=== PATIENT | female | born 1990 | race Caucasian/White ===

== ENCOUNTER 2018-02-04 09:03 | Inpatient (IN) ==
[2018-02-04] MEDS ORDERED: Albuterol 2.5 MG/3 ML NEBULIZER IH ONE (09:30)
[2018-02-04] MEDS ORDERED: Ipratropium/Albuterol Neb 3 ML IH ONE (09:30)
--- NOTE | 2018-02-04 09:33 | Emergency Department Note ---
Disposition Clinical Impression: Shortness of breath Asthma with exacerbation Qualifiers: Asthma severity: moderate Asthma persistence: persistent Qualified Code(s): J45.41 - Moderate persistent asthma with (acute) exacerbation Asthma exacerbation Qualifiers: Asthma severity: moderate Asthma persistence: persistent Qualified Code(s): J45.41 - Moderate persistent asthma with (acute) exacerbation Pneumonia Qualifiers: Pneumonia type: due to unspecified organism Laterality: bilateral Lung location : unspecified part of lung Qualified Code(s): J18.9 - Pneumonia, unspecified organism Disposition: Admitted As Inpatient Condition: Good Instructions: How to Stop Smoking (ED), Dyspnea (ED) Reasons to Return/Additional Instructions: Please return immediately for any new or worsening symptoms, especially pain associated with exertion or shortness of breath. Otherwise, refrain from strenuous activity until cleared by your doctor. Prescriptions: GuaiFENesin ER [Mucinex] 600 mg PO BID #10 tbbp.12hr predniSONE [Prednisone] 50 mg PO DAILY #5 tablet Referrals: Dilia Singh [Primary Care Provider] - Forms: ED Satisfaction Letter Time of Disposition: 11:20 SOB HPI - General Chief Complaint: ED Shortness of Breath/Dyspnea Stated Complaint: cough,sob Time Seen by Provider: 02/04/18 09:24 Source: patient Limitations: no limitations Nursing Notes Reviewed: Yes Vital Signs Reviewed: Yes - History of Present Illness 27-year-old female complains of shortness of breath cough congestion 1 week. Patient has a history of asthma. Patient states she is having productive cough green chunky expectorated. Patient states she has no chest pain but her shortness of breath is worsening. Patient was seen by her PCP Dr. Singh and was placed on amoxicillin, and prednisone 20 mg daily. Patient states her symptoms persist on medications. Patient denies fever, chills Patient admits to every day tobacco use one pack a day - Related Data Home Medications Medication Instructions Recorded Confirmed Albuterol Sulfate [Ventolin Hfa] 2 puff IH Q4H PRN 02/04/18 02/04/18 Alprazolam [Xanax] 2 mg PO BID 02/04/18 02/04/18 Clindamycin Phosphate [Cleocin T] 1 appl TP BID PRN 02/04/18 02/04/18 Gabapentin [Neurontin] 600 mg PO TID 02/04/18 02/04/18 Omeprazole [PriLOSEC] 20 mg PO BID 02/04/18 02/04/18 Paliperidone [Paliperidone ER] 3 mg PO DAILY 02/04/18 02/04/18 Paliperidone [Paliperidone ER] 9 mg PO HS 02/04/18 02/04/18 Venlafaxine HCl [Venlafaxine HCl 75 mg PO DAILY 02/04/18 02/04/18 ER] Zolpidem Tartrate [Zolpidem 5 mg PO HS PRN 02/04/18 02/04/18 Tartrate] Previous Rx's Medication Instructions Recorded GuaiFENesin ER [Mucinex] 600 mg PO BID #10 tbbp.12hr 02/04/18 predniSONE [Prednisone] 50 mg PO DAILY #5 tablet 02/04/18 Allergies Allergy/AdvReac Type Severity Reaction Status Date / Time doxycycline AdvReac Hives Verified 10/20/17 16:12 All systems ED: reviewed and negative except as stated. Review of Systems: As Per HPI Constitutional: Denies: fever, chills Cardiovascular: Denies: chest pain Respiratory: Reports: cough, dyspnea, wheezes. Denies: hemoptysis Gastrointestinal: Denies: abdominal pain, nausea, vomiting, diarrhea Musculoskeletal: Denies: back pain Past Medical History - Past Medical History Attestation: Yes The following information was validated with the patient. Source: patient, nursing notes reviewed Medical history: Reports: asthma Surgical history: Reports: cholecystectomy Psychiatric history: Reports: anxiety, depression, PTSD - Social History Smoking Status: Current every day smoker Smokeless Tobacco Status: No Alcohol use: Reports: none Drug use: Reports: none Physical Exam Vital Signs Temperature 98.6 F 02/04/18 09:11 Pulse Rate 98 02/04/18 09:11 Respiratory Rate 18 02/04/18 09:11 Blood Pressure 133/83 02/04/18 09:11 O2 Sat by Pulse Oximetry 92 02/04/18 09:11 Temperature 98.6 F 02/04/18 09:11 Pulse Rate 98 02/04/18 09:11 Respiratory Rate 18 02/04/18 09:11 Blood Pressure 133/83 02/04/18 09:11 O2 Sat by Pulse Oximetry 92 02/04/18 09:11 Oxygen Delivery Oxygen Delivery Room Air CONSTITUTIONAL: Alert and oriented X3, well-nourished, well appearing, in no apparent distress HEAD: Normocephalic; atraumatic. EYES: PERRL, no scleral icterus. NOSE: The nose is normal in appearance without rhinorrhea RESP: Normal chest excursion with respiration; wheezing auscultated bilaterally lung anguiano shallow breath sounds CARD: Regular rhythm, without murmurs, rub or gallop ABD: Non-distended; non-tender, soft,without rigidity, rebound or guarding SKIN: Normal for age and race; warm and dry; no apparent lesions - General Limitations: no limitations General appearance: alert Course - Reevaluation(s) Reevaluation #1: Patient has started her DuoNeb treatment. There was delay in receiving the medication from the pharmacy. Time: 10:20 Reevaluation #2: Patient failed her ambulation test. O2 saturations drop to 90% on room air. Patient is not on O2 at home Time: 11:12 Vital Signs Temperature 98.6 F 02/04/18 09:11 Pulse Rate 98 02/04/18 09:11 Respiratory Rate 18 02/04/18 09:11 Blood Pressure 133/83 02/04/18 09:11 O2 Sat by Pulse Oximetry 92 02/04/18 09:11 Temperature 98.6 F 02/04/18 09:11 Pulse Rate 98 02/04/18 10:08 Respiratory Rate 20 02/04/18 10:08 Blood Pressure 133/89 02/04/18 10:08 O2 Sat by Pulse Oximetry 95 02/04/18 10:08 Oxygen Delivery Oxygen Delivery Room Air Shortness of Breath/Dyspnea - [facility] Narrative Medical decision making narrative: Patient presents with cough and congestion times one week for asthma exacerbation with failure of outpatient treatment. Patient was placed on antibiotics aygmentin and prednisone 20 mg daily with no improvement in her symptoms. On the well's criteria for pulmonary embolism patient is low risk with no clinical signs and symptoms of DVT. Heart rate less than 100, no immobilization or recent surgeries and previous weeks, previously diagnosed PE or DVT, hemoptysis, treatment for malignancy. Plan is for patient to be treated with DuoNeb 3, albuterol nebulizer 3 and 60 mg by mouth prednisone. Chest x-ray ordered to assess for possible pneumonia. Patient's O2 saturations currently 91 on room air. Patient placed on supplemental oxygen 2 L via nasal cannula. Chest x-ray results per radiologist: Mild bilateral central perihilar prominence is nonspecific. This may be secondary to vascular crowding versus an atypical pneumonia. Recommend clinical correlation Patient was reexamined after treatment with DuoNeb and albuterol. There is deeper penetration and lower lung anguiano but patient still has some wheezing. After ambulating patient had a drop in her O2 sat down to 90% after short walk. Patient states she has has no change in her symptoms. Patient accepts this decision for admission for IV antibiotic therapy for pneumonia and hypoxia with failure to return to normal baseline. Patient is not on oxygen at home. Dr. Coy the hospitalist accepted patient for admission. - Lab Data Lab results reviewed: Yes I reviewed the patient's lab results. - Radiology Data Radiology results reviewed: Yes I reviewed the patient's radiology results. Chest X-Ray 02/04/18 09:31 IMPRESSION: Mild bilateral central perihilar prominence is nonspecific. This may be secondary to vascular crowding versus an atypical pneumonia. Recommend clinical correlation. D/ / Robson Santos MD / Robson Santos MD Interpreting Provider: Robson Santos MD - EKG Data EKG attestation: Yes I reviewed and interpreted this EKG. EKG results narrative: EKG taken 02/04/2018 at 1101 hrs. shows a sinus rhythm at a rate of 90 beats minute with no acute ST elevations or depressions a days, widened QT prolongation. There is no S1Q3T3, no Brugada, no Wellens. No changes when compared to previous EKG taken 09/10/2015.
[2018-02-04] MEDS ORDERED: predniSONE 20 MG TABLET PO ONE (09:45)
--- NOTE | 2018-02-04 09:49 | Emergency Department Note ---
Disposition Clinical Impression: Asthma with exacerbation Qualifiers: Asthma severity: moderate Asthma persistence: persistent Qualified Code(s): J45.41 - Moderate persistent asthma with (acute) exacerbation Disposition: Still a Patient Forms: ED Satisfaction Letter Time of Disposition: 09:48 General Adult HPI - General Chief complaint: ED Shortness of Breath/Dyspnea Stated complaint: cough,sob Time Seen by Provider: 02/04/18 09:24 Source: patient Limitations: no limitations Nursing Notes Reviewed: Yes Vital Signs Reviewed: Yes - History of Present Illness Pain Scale: 5 - Related Data Home Medications Medication Instructions Recorded Confirmed Adalimumab [Humira Psoriasis] 40 mg SQ QWEEK 07/11/15 07/11/15 Lurasidone [Latuda] 60 mg PO DAILY 07/11/15 07/11/15 Trazodone HCl [Oleptro ER] 150 mg PO DAILY 07/11/15 07/11/15 diazePAM [Valium] 5 mg PO BID 07/11/15 07/11/15 Previous Rx's Medication Instructions Recorded Ibuprofen [Motrin] 800 mg PO Q8HR #30 tablet 07/12/15 Hydrocodone/Acetaminophen [Vicodin 1 each PO Q6H PRN #12 tab 12/02/15 Es 7.5-300 mg Tablet] Ondansetron [Zofran ODT] 8 mg SL ONCE #15 tab.rapdis 11/04/16 Cyclobenzaprine [Flexeril] 10 mg PO HS PRN #10 tablet 10/20/17 Amoxicillin 875 mg PO BID #20 tablet 02/01/18 Fluconazole [Diflucan] 150 mg PO DAILY #1 tab 02/01/18 Promethazine/Codeine 5 - 10 ml PO Q8HR PRN 6 Days #120 02/01/18 [Phenergan/Codeine] ml predniSONE [PredniSONE] 0 mg PO DAILY #15 tablet 02/01/18 Allergies Allergy/AdvReac Type Severity Reaction Status Date / Time doxycycline AdvReac Hives Verified 10/20/17 16:12 Past Medical History - Past Medical History Medical history: Reports: asthma Surgical history: Reports: cholecystectomy Psychiatric history: Reports: anxiety, depression, PTSD - Social History Smoking Status: Current every day smoker Smokeless Tobacco Status: No Alcohol use: Reports: none Drug use: Reports: none Physical Exam - General Limitations: no limitations General appearance: alert Course - Reevaluation(s) Reevaluation #1: Attestation note I did independently examine and verified the physical examination findings evaluation workup and disposition of this patient. We had independent face-to- face examination and discussion. The patient was seen with the emergency medicine resident Dr. Edgar Alatorre I examined this patient and my medical decision-making was reviewed with the Resident Physician/ELECTRICAL WIRER/PA. I agree with the documented findings, disposition and treatment plan as described except to the extent set forth below. Briefly: 27-year-old female ambulatory nonsmoker presents with URI-type symptoms. History of asthma although no ICU intubation to recent steroids. Increasing cough with sputum and shortness of breath despite using her nebulizer her inhalers home. Patient has bilateral expiratory wheezing coughing afebrile with stable vital signs. Patient with a triple DuoNeb's by mouth steroids and chest x-ray PA and lateral. Disposition pending. Time: 09:47 Vital Signs Temperature 98.6 F 02/04/18 09:11 Pulse Rate 98 02/04/18 09:11 Respiratory Rate 18 02/04/18 09:11 Blood Pressure 133/83 02/04/18 09:11 O2 Sat by Pulse Oximetry 92 02/04/18 09:11 Temperature 98.6 F 02/04/18 09:11 Pulse Rate 98 02/04/18 09:11 Respiratory Rate 18 02/04/18 09:11 Blood Pressure 133/83 02/04/18 09:11 O2 Sat by Pulse Oximetry 92 02/04/18 09:11 Oxygen Delivery Oxygen Delivery Room Air
[2018-02-04] MEDS ORDERED: 0.9 % Sodium Chloride 1,000 ML IVC ONE (10:51)
[2018-02-04] MEDS ORDERED: Azithromycin 500 MG in D5% in Water 250 ML IVPB ONE (10:51)
[2018-02-04] MEDS ORDERED: cefTRIAXone 1,000 MG in Water for inj. (sterile) 20 ML 10 ML IVP ONE (10:57)
[2018-02-04 11:23] LABS: Basophils # 0.1 K/mcL (0.0-0.2); Basophils % 0.4 %; Eosinophils # 0.1 K/mcL (0.0-0.6); Eosinophils % 0.5 %; Hematocrit 41.4 % (35.3-44.9); Immature Granulocytes % 0.7 % (0-4); Lymphocytes % 26.4 %; Mean Corpuscular HGB Conc 33.8 g/dL (31.6-35.5); Mean Corpuscular Hemoglobin 28.3 pg (28.0-33.3); Mean Corpuscular Volume 83.8 fL (83.0-100.0); Mean Platelet Volume 9.3 fL (9.4-12.4); Monocytes # 0.8 K/mcL (0.0-1.3); Monocytes % 5.4 %; Neutrophils # 10.1 K/mcL (1.6-8.9); Platelet Count 297 K/mcL (140-400); Red Blood Count 4.94 M/mcL (3.82-4.97); Red Cell Distribution Width 14.8 % (11.5-14.5); Segmented Neutrophils % 66.6 %
--- NOTE | 2018-02-04 11:34 | Internal Med History&Physical ---
Date of Encounter: 02/04/18 Time of Encounter: 11:30 Assessment and Plan (1) Asthma exacerbation Current visit: Yes Status: Acute We will give IV steroids IV antibiotics scheduled nebulizer Qualifiers: Asthma severity: moderate Asthma persistence: persistent Qualified Code(s ): J45.41 - Moderate persistent asthma with (acute) exacerbation (2) Pneumonia Current visit: Yes Status: Acute Patient has no history of recent admission, we will Continue azithromycin and ceftriaxone Qualifiers: Pneumonia type: due to unspecified organism Laterality: bilateral Lung location: unspecified part of lung Qualified Code(s): J18.9 - Pneumonia, unspecified organism (3) Tobacco dependence Current visit: Yes Status: Acute Smoking cessation discussed will place nicotine patch (4) Morbid obesity with BMI of 45.0-49.9, adult Current visit: Yes Status: Chronic Internal Medicine - H&P: HPI Chief complaint: SOB Admitted From: Home Plans for Post Hospital Care: Home History of present illness: Ms. Mendez is a 27 year old female who has history of smoking and asthma presented to emergency room for shortness of breath and coughing a week. Patient has his history of asthma and uses rescue nebulizer 3-4 times a week and She also smokes a pack a day. She developed shortness of breath wheezing and a cough a week ago. Cough become productive over last few days, and shortness of breath got worse. ,she also c/o chest pain from deep breath and coweugh, pain is located LL chest , sharp when taking ddeep breath. She denies fever and chills, no hemoptysis. In ER, chest x-ray shows bilateral pneumonia and she also has diffuse wheezing patient is going to be admitted for pneumonia and asthma excaerbation Past Med Surg Social Fam HX - Past Medical History Medical history: asthma Psychiatric history: anxiety, depression, PTSD - Past Surgical History Surgical History: cholecystectomy - Social History Smoking Status: Current every day smoker Smokeless Tobacco Status: No Alcohol use: none Drug use: none Internal Medicine - H&P: Meds Albuterol Sulfate [Ventolin Hfa] 2 puff IH Q4H PRN 02/04/18 [History] Alprazolam [Xanax] 2 mg PO BID 02/04/18 [History] Clindamycin Phosphate [Cleocin T] 1 appl TP BID PRN 02/04/18 [History] Gabapentin [Neurontin] 600 mg PO TID 02/04/18 [History] GuaiFENesin ER [Mucinex] 600 mg PO BID #10 tbbp.12hr 02/04/18 [Rx] Omeprazole [PriLOSEC] 20 mg PO BID 02/04/18 [History] Paliperidone [Paliperidone ER] 3 mg PO DAILY 02/04/18 [History] Paliperidone [Paliperidone ER] 9 mg PO HS 02/04/18 [History] Venlafaxine HCl [Venlafaxine HCl ER] 75 mg PO DAILY 02/04/18 [History] Zolpidem Tartrate [Zolpidem Tartrate] 5 mg PO HS PRN 02/04/18 [History] predniSONE [Prednisone] 50 mg PO DAILY #5 tablet 02/04/18 [Rx] 3 Allergy/AdvReac Type Severity Reaction Status Date / Time doxycycline AdvReac Hives Verified 10/20/17 16:12 All Systems PM: A 10-system review of systems was performed and is negative for pertinent findings except as documented above in the HPI. - Constitutional Vitals: Temp Pulse Resp BP Pulse Ox 98.6 F 98 20 133/89 95 02/04/18 09:11 02/04/18 10:08 02/04/18 10:08 02/04/18 10:08 02/04/18 10:08 General appearance: Present: mild distress, A&O X 3, morbidly obese, pleasant Exam: CONSTITUTIONAL: Patient appears as an age appropriate female well developed, in no acute distress. EYES Clear sclerae, bilateral pupils are equal, reactive to light and accommodation. Extraocular movements are intact RESPIRATORY: No accessory muscle use, bilateral diffuse wheezing, no crackles/ rales. CARDIOVASCULAR: Regular heart rate, normal S1 and S2, no murmurs GASTROINTESTINAL: bowel sounds present, soft, no tenderness. No hepatosplenomegaly. No bilateral CVA tenderness MUSCULOSKELETAL: Joints in normal range of motion, no clubbing, no edema, no cyanosis. Bilateral peripheral pulses 2+ LYMPHATIC no lymphadenopathy in neck, groin and axilla bilaterally, no thyromegaly. NEUROLOGIC: CN II to XII are grossly intact, no focal neurological deficit. Deep tendon reflexes 2+ bilaterally. Normal light touch sensation to upper and lower extremity PSYCHIATRIC: Oriented x3, with good insight, mood is euthymic. No hallucinations or delusions. SKIN: Skin warm and dry, no rashes, no open wound. Internal Med - H&P Results - Labs CBC & Chem 7: 02/04/18 11:07 02/04/18 11:07 - Impressions ITS Impressions Chest X-Ray 02/04/18 09:31 IMPRESSION: Mild bilateral central perihilar prominence is nonspecific. This may be secondary to vascular crowding versus an atypical pneumonia. Recommend clinical correlation. D/ / Robson Santos MD / Robson Santos MD Interpreting Provider: Robson Santos MD
[2018-02-04] MEDS ORDERED: Ibuprofen 800 MG TABLET PO ONE (11:36)
[2018-02-04] MEDS ORDERED: CLINDAMYCIN PHOSPHATE APPL TP PRN (11:39)
[2018-02-04 11:41] LABS: BUN/Creatinine Ratio 18 (6-26); Blood Urea Nitrogen 12 mg/dL (6-20); Carbon Dioxide 26 mEq/L (23-29); Chloride 103 mEq/L (98-107); Glucose 105 mg/dL (70-105); Osmolality,Calculated 284 (280-300); Potassium 3.5 mEq/L (3.5-5.1); Sodium 137 mEq/L (136-145); eGFR For African Americans > 60 (> 60); eGFR For Non-African Americans > 60 (> 60)
[2018-02-04] MEDS ORDERED: Naloxone 0.4 MG/ML INJ IVP PRN (11:41)
[2018-02-04] MEDS: *HR* Heparin 5,000 UNIT/ML VIAL SQ SCH ×2 (14:33→21:38)
[2018-02-04] MEDS: methylPREDNISolone 125 MG/2 ML VIAL IVP SCH ×2 (14:33→17:37)
[2018-02-04] MEDS: Gabapentin 300 MG CAPSULE PO SCH ×2 (14:34→21:37)
[2018-02-04] MEDS: Ipratropium/Albuterol Neb 3 ML IH SCH ×3 (15:31→20:02)
[2018-02-04] MEDS: Nicotine 21 MG PATCH.TD24 TD SCH (17:37)
[2018-02-04] MEDS: ALPRAZolam 1 MG TABLET PO SCH (21:37)
[2018-02-05] MEDS: Ipratropium/Albuterol Neb 3 ML IH SCH ×6 (00:08→20:29)
[2018-02-05] MEDS: methylPREDNISolone 125 MG/2 ML VIAL IVP SCH ×3 (01:00→16:45)
[2018-02-05 06:24] LABS: Hematocrit 40.2 % (35.3-44.9); Hemoglobin 13.1 g/dL (11.5-15.4); Mean Corpuscular HGB Conc 32.6 g/dL (31.6-35.5); Mean Corpuscular Hemoglobin 27.6 pg (28.0-33.3); Mean Corpuscular Volume 84.8 fL (83.0-100.0); Mean Platelet Volume 9.5 fL (9.4-12.4); Platelet Count 290 K/mcL (140-400); Red Blood Count 4.74 M/mcL (3.82-4.97); Red Cell Distribution Width 14.5 % (11.5-14.5)
[2018-02-05 06:47] LABS: BUN/Creatinine Ratio 20 (6-26); Blood Urea Nitrogen 13 mg/dL (6-20); Calcium 9.2 mg/dL (8.6-10.3); Carbon Dioxide 19 mEq/L (23-29); Chloride 107 mEq/L (98-107); Glucose 352 mg/dL (70-105); Osmolality,Calculated 298 (280-300); Potassium 4.1 mEq/L (3.5-5.1); Sodium 137 mEq/L (136-145); eGFR For African Americans > 60 (> 60); eGFR For Non-African Americans > 60 (> 60)
[2018-02-05] MEDS: *HR* Heparin 5,000 UNIT/ML VIAL SQ SCH ×3 (06:47→22:06)
[2018-02-05] MEDS: Gabapentin 300 MG CAPSULE PO SCH ×3 (09:38→22:06)
[2018-02-05] MEDS: Nicotine 21 MG PATCH.TD24 TD SCH (09:38)
[2018-02-05] MEDS: ALPRAZolam 1 MG TABLET PO SCH ×2 (09:38→22:05)
[2018-02-05] MEDS: Venlafaxine XR (24 HR) 75 MG CAP.ER.24H PO SCH (09:38)
[2018-02-05] MEDS: cefTRIAXone 1,000 MG in Water for inj. (sterile) 20 ML 10 ML IVP SCH (09:39)
--- NOTE | 2018-02-05 10:24 | Internal Med Progress Note ---
Date of Encounter: 02/05/18 Time of Encounter: 09:53 - Assessment and plan (1) Asthma exacerbation Current Visit: Yes Status: Acute Assessment and plan: Will continue systemic steroids (decreased to Methylprednisolone 60mg IV q8h) continue bronchodilator support IV abx O2 supplementation as needed Guaifenesin prn cough will closely monitor respiratory status Qualifiers: Asthma severity: moderate Asthma persistence: persistent Qualified Code(s ): J45.41 - Moderate persistent asthma with (acute) exacerbation (2) Pneumonia Current Visit: Yes Status: Acute Assessment and plan: continue IV abx f/u blood cultures Qualifiers: Pneumonia type: due to unspecified organism Laterality: bilateral Lung location: unspecified part of lung Qualified Code(s): J18.9 - Pneumonia, unspecified organism (3) Tobacco dependence Current Visit: Yes Status: Chronic Assessment and plan: smoking cessation counseling provided patient not ready to quit at this time nicotine supplementation provided (4) Morbid obesity with BMI of 45.0-49.9, adult Current Visit: Yes Status: Chronic - Subjective Interval history: Patient seen and examined at bedside. Resting in bed and reports of mild improvement in her respiratory status compared to previous day. Reports of severe respiratory distress with minimal exertion and persistent non productive cough. Denies any chest pain, fever, or chills - Constitutional Vitals: Temp Pulse Resp BP Pulse Ox 98.6 F 112 18 121/74 91 02/05/18 08:13 02/05/18 08:13 02/05/18 08:13 02/05/18 08:13 02/05/18 08:13 General appearance: Present: A&O X 3, morbidly obese, pleasant, no acute distress - Head Head exam: Present: atraumatic, normocephalic - Eye Eye exam: Present: conjuntiva pink, sclera anicteric - Respiratory Respiratory exam: Absent: respiratory distress (scattered wheezing and decreased breath sounds diffusely, decreased inspiratory effort diffusely ) - Cardiovascular Cardiovascular exam: Present: RRR, +S1, +S2. Absent: diastolic murmur, gallop, rubs, systolic murmur - GI/Abdominal GI/Abdominal exam: Present: normal bowel sounds, soft, no peritoneal signs. Absent: distended, tenderness - Extremities Exam Extremities exam: Present: warm, radial pulses palpable and symmetrical. Absent : calf tenderness, pedal edema - Neurological Exam Neurological exam: Present: alert, oriented X3 - Psychiatric Psychiatric exam: Present: normal affect, normal mood Internal Medicine: Result - Labs CBC & Chem 7: 02/05/18 06:07 02/05/18 06:07 Labs: Short CBC 02/05/18 Range/Units 06:07 WBC 20.6 H (4.3-11.1) K/mcL Hgb 13.1 (11.5-15.4) g/dL Hct 40.2 (35.3-44.9) % Plt Count 290 (140-400) K/mcL BMP 02/05/18 06:07 Sodium 137 Potassium 4.1 Chloride 107 Carbon Dioxide 19 L BUN 13 Creatinine 0.66 Glucose 352 H Calcium 9.2 Consult Discharge Plan - Plan Referrals: Dilia Singh [Primary Care Provider] -
[2018-02-05] MEDS: Azithromycin 500 MG in D5% in Water 250 ML IVPB SCH (11:29)
[2018-02-05] MEDS: GuaiFENesin Liq 200 MG/10 ML UDC PO PRN (16:57)
[2018-02-06] MEDS: Ipratropium/Albuterol Neb 3 ML IH SCH ×6 (00:38→20:11)
[2018-02-06] MEDS: methylPREDNISolone 125 MG/2 ML VIAL IVP SCH ×3 (01:01→13:39)
[2018-02-06 07:25] LABS: Basophils % 0.2 %; Hematocrit 37.9 % (35.3-44.9); Hemoglobin 12.6 g/dL (11.5-15.4); Immature Granulocytes % 1.8 % (0-4); Immature Platelets 2.4 % (1.1-6.1); Lymphocytes # 1.6 K/mcL (0.6-4.6); Lymphocytes % 6.8 %; Mean Corpuscular HGB Conc 33.2 g/dL (31.6-35.5); Mean Corpuscular Hemoglobin 28.3 pg (28.0-33.3); Mean Corpuscular Volume 85.2 fL (83.0-100.0); Mean Platelet Volume 10.1 fL (9.4-12.4); Monocytes # 0.7 K/mcL (0.0-1.3); Neutrophils # 21.2 K/mcL (1.6-8.9); Platelet Count 321 K/mcL (140-400); Red Blood Count 4.45 M/mcL (3.82-4.97); Red Cell Distribution Width 14.8 % (11.5-14.5); Segmented Neutrophils % 88.2 %
[2018-02-06 07:39] LABS: Basophils # 0.1 K/mcL (0.0-0.2)
[2018-02-06 07:49] LABS: BUN/Creatinine Ratio 23 (6-26); Blood Urea Nitrogen 15 mg/dL (6-20); Calcium 9.2 mg/dL (8.6-10.3); Carbon Dioxide 22 mEq/L (23-29); Chloride 106 mEq/L (98-107); Glucose 411 mg/dL (70-105); Magnesium 2.2 mg/dL (1.6-2.6); Osmolality,Calculated 304 (280-300); Phosphorous 3.1 mg/dL (2.7-4.5); Sodium 138 mEq/L (136-145); eGFR For African Americans > 60 (> 60); eGFR For Non-African Americans > 60 (> 60)
[2018-02-06 08:02] LABS: Platelet Estimate Normal (Normal)
[2018-02-06] MEDS: Venlafaxine XR (24 HR) 75 MG CAP.ER.24H PO SCH (09:05)
[2018-02-06] MEDS: Gabapentin 300 MG CAPSULE PO SCH ×3 (09:05→21:51)
[2018-02-06] MEDS: ALPRAZolam 1 MG TABLET PO SCH ×2 (09:05→21:42)
[2018-02-06] MEDS: Nicotine 21 MG PATCH.TD24 TD SCH (09:05)
[2018-02-06] MEDS ORDERED: D5% in Water 1,000 ML IVC PRN (09:06)
[2018-02-06] MEDS ORDERED: *HR* Dextrose 50 % in Water (Syg) 50 ML SYRINGE IVP PRN (09:06)
[2018-02-06] MEDS ORDERED: Dextrose Gel 15 GM/37.5 ML TUBE PO PRN ×2 (09:06)
[2018-02-06] MEDS: cefTRIAXone 1,000 MG in Water for inj. (sterile) 20 ML 10 ML IVP SCH (09:06)
[2018-02-06] MEDS: *HR* Heparin 5,000 UNIT/ML VIAL SQ SCH ×3 (09:07→21:51)
--- NOTE | 2018-02-06 09:24 | Internal Med Progress Note ---
Date of Encounter: 02/06/18 Time of Encounter: 09:15 - Assessment and plan (1) Asthma exacerbation Current Visit: Yes Status: Acute Assessment and plan: Will continue systemic steroids (Methylprednisolone 60mg IV q8h) continue bronchodilator support IV abx O2 supplementation as needed Guaifenesin prn cough will closely monitor respiratory status will repeat CXR given persistence of symptoms Qualifiers: Asthma severity: moderate Asthma persistence: persistent Qualified Code(s ): J45.41 - Moderate persistent asthma with (acute) exacerbation (2) Pneumonia Current Visit: Yes Status: Acute Assessment and plan: continue IV abx Blood cultures prelim: NGTD Qualifiers: Pneumonia type: due to unspecified organism Laterality: bilateral Lung location: unspecified part of lung Qualified Code(s): J18.9 - Pneumonia, unspecified organism (3) Tobacco dependence Current Visit: Yes Status: Chronic Assessment and plan: smoking cessation counseling provided patient not ready to quit at this time nicotine supplementation provided (4) Morbid obesity with BMI of 45.0-49.9, adult Current Visit: Yes Status: Chronic (5) Hyperglycemia Current Visit: Yes Status: Acute Assessment and plan: Likely secondary to steroid use, however will obtain HbA1C will start sliding scale insulin algorithm TIDAC, HS while inpatient on steroids will closely monitor BG - Subjective Interval history: Pt seen and examined at bedside. Resting in bed and noted to be requiring O2 therapy. States she continues to be in severe respiratory distress even with minimal exertion. Noted to remain O2 dependent when at baseline she is not on any home oxygen therapy. Reports of improvement in her cough. - Constitutional Vitals: Temp Pulse Resp BP Pulse Ox 96.8 F L 88 16 133/82 96 02/06/18 08:16 02/06/18 08:16 02/06/18 08:16 02/06/18 08:16 02/06/18 08:16 General appearance: Present: A&O X 3, morbidly obese, pleasant, no acute distress - Head Head exam: Present: atraumatic, normocephalic - Eye Eye exam: Present: conjuntiva pink, sclera anicteric - Respiratory Respiratory exam: Absent: respiratory distress, wheezes (decreased breath sounds diffusely, equal air entry bilaterally ) - Cardiovascular Cardiovascular exam: Present: RRR, +S1, +S2. Absent: diastolic murmur, gallop, rubs, systolic murmur - GI/Abdominal GI/Abdominal exam: Present: normal bowel sounds, soft, no peritoneal signs. Absent: distended, tenderness - Extremities Exam Extremities exam: Present: warm, radial pulses palpable and symmetrical. Absent : calf tenderness, cyanotic, pedal edema - Neurological Exam Neurological exam: Present: oriented X3, no focal deficits. Absent: pronater drift, facial droop, speech deficit - Psychiatric Psychiatric exam: Present: normal affect, normal mood Internal Medicine: Result - Labs CBC & Chem 7: 02/06/18 06:17 02/06/18 06:17 Labs: Short CBC 02/06/18 Range/Units 06:17 WBC 24.0 H (4.3-11.1) K/mcL Hgb 12.6 (11.5-15.4) g/dL Hct 37.9 (35.3-44.9) % Plt Count 321 (140-400) K/mcL Neutrophils # 21.2 H (1.6-8.9) K/mcL BMP 02/06/18 06:17 Sodium 138 Potassium 4.0 Chloride 106 Carbon Dioxide 22 L BUN 15 Creatinine 0.65 Glucose 411 H Calcium 9.2 Consult Discharge Plan - Plan Referrals: Dilia Singh [Primary Care Provider] -
[2018-02-06 10:20] LABS: Estimated Average Glucose 123 mg/dl; Hemoglobin A1C 5.9 %
[2018-02-06] MEDS: Azithromycin 500 MG in D5% in Water 250 ML IVPB SCH (11:42)
--- NOTE | 2018-02-06 12:30 | Electrocardiograph Report ---
[place] [id number] Test Date: 2018-02-04 Pat Name: Jennifer Mendez Department: 104 Room: 3B Gender: F Hand Packager: KAY : 1990 Requested By: Edgar Alatorre Order Number: [id number] Reading MD: John Land Measurements Intervals [place] Rate: 90 P: 23 [place]: 169 QRS: 0 QRSD: 113 T: 15 QT: 357 QTc: 404 Interpretive Statements SINUS RHYTHM MODERATE VOLTAGE CRITERIA FOR LVH BASELINE ARTIFACT Electronically Signed On 02-06-2018 12:29:08 EDT by John Land
[2018-02-06] MEDS: GuaiFENesin Liq 200 MG/10 ML UDC PO PRN ×2 (13:39→21:42)
[2018-02-06] MEDS: Insulin LISPRO 300 UNITS/3 ML VIAL SQ SCH ×2 (13:40→18:00)
[2018-02-06] MEDS ORDERED: methylPREDNISolone 125 MG/2 ML VIAL IVP SCH (19:00)
[2018-02-06] MEDS ORDERED: Insulin LISPRO 300 UNITS/3 ML VIAL SQ SCH (21:00)
[2018-02-07] MEDS: Ipratropium/Albuterol Neb 3 ML IH SCH ×7 (00:08→23:56)
[2018-02-07] MEDS: methylPREDNISolone 125 MG/2 ML VIAL IVP SCH ×4 (00:52→22:45)
[2018-02-07] MEDS: *HR* Heparin 5,000 UNIT/ML VIAL SQ SCH ×3 (06:42→22:45)
[2018-02-07 06:49] LABS: BUN/Creatinine Ratio 30 (6-26); Blood Urea Nitrogen 17 mg/dL (6-20); Calcium 9.2 mg/dL (8.6-10.3); Carbon Dioxide 24 mEq/L (23-29); Chloride 103 mEq/L (98-107); Glucose 316 mg/dL (70-105); Magnesium 2.1 mg/dL (1.6-2.6); Osmolality,Calculated 296 (280-300); Potassium 4.1 mEq/L (3.5-5.1); Sodium 136 mEq/L (136-145); eGFR For African Americans > 60 (> 60); eGFR For Non-African Americans > 60 (> 60)
[2018-02-07 06:56] LABS: Basophils # 0.1 K/mcL (0.0-0.2); Basophils % 0.3 %; Hematocrit 37.8 % (35.3-44.9); Hemoglobin 12.3 g/dL (11.5-15.4); Immature Granulocytes % 3.6 % (0-4); Lymphocytes # 2.6 K/mcL (0.6-4.6); Lymphocytes % 11.4 %; Mean Corpuscular HGB Conc 32.5 g/dL (31.6-35.5); Mean Corpuscular Hemoglobin 27.8 pg (28.0-33.3); Mean Corpuscular Volume 85.5 fL (83.0-100.0); Mean Platelet Volume 9.8 fL (9.4-12.4); Monocytes % 4.1 %; Neutrophils # 18.6 K/mcL (1.6-8.9); Platelet Count 307 K/mcL (140-400); Red Blood Count 4.42 M/mcL (3.82-4.97); Red Cell Distribution Width 14.6 % (11.5-14.5); Segmented Neutrophils % 80.6 %
[2018-02-07] MEDS ORDERED: predniSONE 20 MG TABLET PO SCH (09:00)
[2018-02-07] MEDS: ALPRAZolam 1 MG TABLET PO SCH ×2 (09:24→20:26)
[2018-02-07] MEDS: Gabapentin 300 MG CAPSULE PO SCH ×3 (09:24→20:26)
[2018-02-07] MEDS: Venlafaxine XR (24 HR) 75 MG CAP.ER.24H PO SCH (09:24)
[2018-02-07] MEDS: Nicotine 21 MG PATCH.TD24 TD SCH (09:24)
[2018-02-07] MEDS: cefTRIAXone 1,000 MG in Water for inj. (sterile) 20 ML 10 ML IVP SCH (09:25)
[2018-02-07] MEDS: Insulin LISPRO 300 UNITS/3 ML VIAL SQ SCH ×3 (09:34→18:16)
[2018-02-07] MEDS ORDERED: Insulin LISPRO 300 UNITS/3 ML VIAL SQ SCH (09:39)
[2018-02-07] MEDS: GuaiFENesin Liq 200 MG/10 ML UDC PO PRN ×2 (09:54→23:08)
[2018-02-07] MEDS: Azithromycin 500 MG in D5% in Water 250 ML IVPB SCH (10:54)
--- NOTE | 2018-02-07 11:03 | Pulmonology Consult Note ---
Date of Encounter: 02/07/18 Time of Encounter: 11:02 Assessment and Plan (1) Asthma with exacerbation Current Visit: Yes Status: Acute This is likely secondary to infectious pneumonia 4/appears that patient's baseline asthma was not well controlled as she was having nightly nocturnal awakenings to cough Continue IV steroids with plan to transition to oral formulation over the next 24-48 hours will likely need two-week taper Start Symbicort 160/4.52 puffs twice a day this can be given to the patient at discharge she should be instructed to stop all other inhaled corticosteroid inhalers DuoNeb treatments as prescribed patient should have an nebulizer compressor to go home with she may be a candidate for long acting muscarinic antagonist such as Spiriva in Respimat forumlation Check IgE level Daily peak flow Follow-up pulmonary clinic in 2-4 weeks of the time of discharge Qualifiers: Asthma severity: unspecified severity Asthma persistence: persistent Qualified Code(s): J45.901 - Unspecified asthma with (acute) exacerbation (2) Pneumonia Current Visit: Yes Status: Acute This appears infectious and I suspect viral pneumonia Please obtain respiratory infectious panel Agree with continued treatment for community-acquired pneumonia to complete [address] scan in 4-6 weeks at the time of discharge to confirm resolution Qualifiers: Pneumonia type: due to unspecified organism Laterality: bilateral Lung location: unspecified part of lung Qualified Code(s): J18.9 - Pneumonia, unspecified organism (3) Morbid obesity with BMI of 45.0-49.9, adult Current Visit: Yes Status: Chronic Weight loss encouraged (4) Tobacco dependence Current Visit: Yes Status: Chronic Tobacco counseling cessation given to the patient please provide patient with nicotine replacement as needed now and at time of discharge (5) Sleep disorder breathing Current Visit: Yes Status: Acute High pretest probability this patient has obstructive sleep apnea Explained that possible adverse effects of untreated sleep apnea explained including increased risk of stroke, hypertension, headaches, and pulmonary hypertension. Advised not to drive if sleepy as untreated NIKO can cause motor vehicle accidents. She will need outpatient polysomnogram (6) Allergic rhinitis Current Visit: Yes Status: Acute Start intranasal corticosteroid Start Singulair Cont Zyrtec Qualifiers: Qualified Code(s): J30.9 - Allergic rhinitis, unspecified (7) Acute respiratory failure with hypoxia Current Visit: Yes Status: Acute Continue supplemental oxygen to keep saturation greater than 88% at all times Patient will need a walking pulse oximetry test prior to discharge History of Present Illness Consult date: 02/07/18 Requesting physician: Juani Vasquez Reason for consult: asthma Chief complaint: Difficulty in breathing History of present illness: This is a very pleasant 27-year-old with past medical history of asthma diagnosed challenge presented with she describes as upper respiratory tract infection likely she caught from her boyfriend who also had similar symptoms of significant cough or shortness of breath approximately 3 days prior to admission to the ED. She was seen in urgent care for this given steroids and a course of antibiotics which she ended up taking 3 days of Augmentin and prednisone however symptoms did not kady and she presented to the ED. She requires abdominal oxygen which is new for her since this admission and is currently on 23 L to keep saturation in the mid 90s. No other exacerbations requiring hospitalizations in the past. She has significant problems with allergic rhinitis and allergic triggers such as pets including dogs and cats. She smokes about 1 pack a day and has for many years. Current work environment is at a [employer] shop. She is morbidly obese complaining of loud snoring and frequent daytime hypersomnolence She denies nausea vomiting hemoptysis weight loss joint pains or rash Past Med Surg Social Fam HX - Past Medical History Medical history: asthma Psychiatric history: anxiety, depression, PTSD - Past Surgical History Surgical History: cholecystectomy - Social History Smoking Status: Current every day smoker Packs per day: 1 Smokeless Tobacco Status: No Alcohol use: none Drug use: none - Family History Mother Hx Family Respiratory Disorders: Yes (COPD) Medications and Allergies Albuterol Sulfate [Ventolin Hfa] 2 puff IH Q4H PRN 02/04/18 [History] Alprazolam [Xanax] 2 mg PO BID 02/04/18 [History] Clindamycin Phosphate [Cleocin T] 1 appl TP BID PRN 02/04/18 [History] Gabapentin [Neurontin] 600 mg PO TID 02/04/18 [History] GuaiFENesin ER [Mucinex] 600 mg PO BID #10 tbbp.12hr 02/04/18 [Rx] Omeprazole [PriLOSEC] 20 mg PO BID 02/04/18 [History] Paliperidone [Paliperidone ER] 3 mg PO DAILY 02/04/18 [History] Paliperidone [Paliperidone ER] 9 mg PO HS 02/04/18 [History] Venlafaxine HCl [Venlafaxine HCl ER] 75 mg PO DAILY 02/04/18 [History] Zolpidem Tartrate [Zolpidem Tartrate] 5 mg PO HS PRN 02/04/18 [History] predniSONE [Prednisone] 50 mg PO DAILY #5 tablet 02/04/18 [Rx] 3 Allergy/AdvReac Type Severity Reaction Status Date / Time doxycycline AdvReac Hives Verified 10/20/17 16:12 All Systems: The remainder of the systems were reviewed and are negative Physical Examination Vital Signs: Vital Signs, Last 4 Hours Temp Pulse Resp BP Pulse Ox 02/07/18 07:53 97.3 F L 87 16 149/88 94 02/07/18 07:46 16 94 General appearance: appears uncomfortable Eyes: nonicteric ENT: oropharynx moist Mallampati (class): 4 Neck: supple Effort: mildly labored Auscultation: bilateral: diminished breath sounds, wheezes (insp wheeze noted ) Cardiovascular: regular rate and rhythm Gastrointestinal: normoactive bowel sounds Integumentary: normal Extremities: no cyanosis, no edema, no clubbing Musculoskeletal: no deformities normal mental status, non-focal exam Results - Laboratory Findings CBC and BMP: 02/07/18 06:00 02/07/18 06:00 Abnormal lab findings: Abnormal lab results WBC 23.0 K/mcL (4.3-11.1) H 02/07/18 06:00 MCH 27.8 pg (28.0-33.3) L 02/07/18 06:00 RDW 14.6 % (11.5-14.5) H 02/07/18 06:00 Neutrophils # 18.6 K/mcL (1.6-8.9) H 02/07/18 06:00 Creatinine 0.56 mg/dL (0.60-1.20) L 02/07/18 06:00 BUN/Creatinine Ratio 30 (6-26) H 02/07/18 06:00 Glucose 316 mg/dL (70-105) H 02/07/18 06:00 POC Glucose 331 mg/dL (58-89) H 02/06/18 17:19 Hemoglobin A1c 5.9 % (-5.6) H 02/06/18 06:17 - Clinical Findings Intake & Output: Intake & Output 02/06/18 02/07/18 02/07/18 23:59 07:59 15:59 Intake Total 420 / 420 Balance 420 / 420 Weight 135.7 kg Consult Discharge Plan - Plan Referrals: Dilia Singh [Primary Care Provider] -
[2018-02-07] MEDS: Budesonide/Formoterol 160/4.5 MDI IH SCH ×2 (11:55→20:04)
[2018-02-07] MEDS ORDERED: 0.9 % Sodium Chloride 1,000 ML ONE (12:16)
[2018-02-07 13:04] LABS: Adenovirus Not Detected (Not Detect); Bordetella Pertussis Not Detected (Not Detect); Chlamydophila pneumoniae Not Detected (Not Detect); Coronavirus 229E Not Detected (Not Detect); Coronavirus HKU1 Not Detected (Not Detect); Coronavirus NL63 Not Detected (Not Detect); Coronavirus OC43 Not Detected (Not Detect); Human Metapneumovirus Not Detected (Not Detect); Human Rhinovirus/Enterovirus ***DETECTED*** (Not Detect); Influenza A Subtype 2009 H1 Not Detected (Not Detect); Influenza A Untypeable Not Detected (Not Detect); Influenza B Not Detected (Not Detect); Mycoplasma pneumoniae Not Detected (Not Detect); Parainfluenza Virus 1 Not Detected (Not Detect); Parainfluenza Virus 2 Not Detected (Not Detect); Parainfluenza Virus 3 Not Detected (Not Detect); Parainfluenza Virus 4 Not Detected (Not Detect); Respiratory Syncytial Virus Not Detected (Not Detect)
[2018-02-07] MEDS: Fluticasone Propionate Nasal 50 MCG/SPRAY BOTTLE NS SCH (13:24)
[2018-02-07] MEDS: 0.9 % Sodium Chloride 1,000 ML IVC SCH (13:25)
[2018-02-07 13:40] LABS: BUN/Creatinine Ratio 30 (6-26); Blood Urea Nitrogen 20 mg/dL (6-20); Calcium 9.3 mg/dL (8.6-10.3); Carbon Dioxide 25 mEq/L (23-29); Chloride 103 mEq/L (98-107); Glucose 403 mg/dL (70-105); Osmolality,Calculated 298 (280-300); Sodium 134 mEq/L (136-145); eGFR For African Americans > 60 (> 60); eGFR For Non-African Americans > 60 (> 60)
--- NOTE | 2018-02-07 17:03 | Internal Med Progress Note ---
Date of Encounter: 02/07/18 Time of Encounter: 14:15 - Assessment and plan (1) Asthma exacerbation Current Visit: Yes Status: Acute Assessment and plan: Pulmonary evaluation appreciated added Symbicort, Fluticasone, and Singulair pt will need O2 qualification testing prior to discharge continue systemic steroids (Methylprednisolone 60mg IV q8h) continue bronchodilator support IV abx O2 supplementation as needed Guaifenesin prn cough will closely monitor respiratory status CTA chest noted Qualifiers: Asthma severity: moderate Asthma persistence: persistent Qualified Code(s ): J45.41 - Moderate persistent asthma with (acute) exacerbation (2) Pneumonia Current Visit: Yes Status: Acute Assessment and plan: continue IV abx Blood cultures prelim: NGTD respiratory viral panel positive for entero/rsv Qualifiers: Pneumonia type: due to unspecified organism Laterality: bilateral Lung location: unspecified part of lung Qualified Code(s): J18.9 - Pneumonia, unspecified organism (3) Tobacco dependence Current Visit: Yes Status: Chronic Assessment and plan: smoking cessation counseling provided patient not ready to quit at this time nicotine supplementation provided (4) Morbid obesity with BMI of 45.0-49.9, adult Current Visit: Yes Status: Chronic (5) Hyperglycemia Current Visit: Yes Status: Acute Assessment and plan: HbA1C: 5.9 increased to high dose sliding scale insulin algorithm Levemir 10units SQ HS dietary compliance and education provided gentle IV fluids will closely monitor FS and BG ADA diet - Time Spent With Patient Total time spent is greater than 50% in coordination of care (as documented) at patient's floor/unit and/or counseling patient: - Subjective Interval history: Pt seen and examined with family present at bedside. Continues to remain O2 dependent due to which pulmonary evaluation was requested. Pt also noted to be hyperglycemic and noted to have sodas, chips, sweets around her room. Pt educated about dietary compliance. Insulin dosing adjusted. - Constitutional Vitals: Temp Pulse Resp BP Pulse Ox 97.9 F 77 18 126/75 95 02/07/18 15:41 02/07/18 15:41 02/07/18 15:41 02/07/18 15:41 02/07/18 15:41 General appearance: Present: A&O X 3, morbidly obese, no acute distress - Head Head exam: Present: atraumatic, normocephalic - Eye Eye exam: Present: conjuntiva pink, sclera anicteric - Respiratory Respiratory exam: Absent: respiratory distress (decreased breath sounds but equal air entry bilaterally, mild wheezing bilaterally ) - Cardiovascular Cardiovascular exam: Present: RRR, +S1, +S2. Absent: diastolic murmur, gallop, rubs, systolic murmur - GI/Abdominal GI/Abdominal exam: Present: normal bowel sounds, soft, no peritoneal signs. Absent: distended, tenderness - Extremities Exam Extremities exam: Present: warm, radial pulses palpable and symmetrical. Absent : calf tenderness, pedal edema - Neurological Exam Neurological exam: Present: oriented X3 Internal Medicine: Result - Labs CBC & Chem 7: 02/07/18 06:00 02/07/18 12:57 Labs: Short CBC 02/07/18 Range/Units 06:00 WBC 23.0 H (4.3-11.1) K/mcL Hgb 12.3 (11.5-15.4) g/dL Hct 37.8 (35.3-44.9) % Plt Count 307 (140-400) K/mcL Neutrophils # 18.6 H (1.6-8.9) K/mcL BMP 02/07/18 02/07/18 06:00 12:57 Sodium 136 134 L Potassium 4.1 4.0 Chloride 103 103 Carbon Dioxide 24 25 BUN 17 20 Creatinine 0.56 L 0.66 Glucose 316 H 403 H Calcium 9.2 9.3 - Impressions Impressions Chest CTA 02/07/18 09:38 IMPRESSION: 1. No evidence of pulmonary embolus. 2. Bilateral peribronchovascular ground-glass opacities suggestive of pneumonia. D/ / 02/07/2018 10:49:50 Jerome Leger MD / michelle Interpreting Provider: Jerome Leger MD Consult Discharge Plan - Plan Referrals: Dilia Singh [Primary Care Provider] -
[2018-02-07] MEDS ORDERED: Insulin DETEMIR 100 UNIT/ML X5UNITS SQ SCH (21:00)
[2018-02-07] MEDS ORDERED: Acetaminophen 325 MG TABLET PO PRN (22:50)
[2018-02-08] MEDS: 0.9 % Sodium Chloride 1,000 ML IVC SCH (01:54)
[2018-02-08] MEDS: Ipratropium/Albuterol Neb 3 ML IH SCH ×6 (04:34→23:26)
[2018-02-08] MEDS ORDERED: traMADol 50 MG TABLET PO ONE (04:40)
[2018-02-08 04:53] LABS: Basophils # 0.1 K/mcL (0.0-0.2); Basophils % 0.4 %; Hematocrit 36.6 % (35.3-44.9); Hemoglobin 12.1 g/dL (11.5-15.4); Immature Granulocytes % 4.6 % (0-4); Lymphocytes # 2.9 K/mcL (0.6-4.6); Lymphocytes % 13.5 %; Mean Corpuscular HGB Conc 33.1 g/dL (31.6-35.5); Mean Corpuscular Hemoglobin 27.9 pg (28.0-33.3); Mean Corpuscular Volume 84.3 fL (83.0-100.0); Mean Platelet Volume 9.5 fL (9.4-12.4); Monocytes # 0.9 K/mcL (0.0-1.3); Monocytes % 4.3 %; Neutrophils # 16.5 K/mcL (1.6-8.9); Platelet Count 289 K/mcL (140-400); Red Blood Count 4.34 M/mcL (3.82-4.97); Red Cell Distribution Width 14.4 % (11.5-14.5); Segmented Neutrophils % 77.2 %
[2018-02-08] MEDS: methylPREDNISolone 125 MG/2 ML VIAL IVP SCH ×3 (04:59→21:17)
[2018-02-08] MEDS: *HR* Heparin 5,000 UNIT/ML VIAL SQ SCH ×3 (04:59→21:17)
[2018-02-08] MEDS: Nicotine 21 MG PATCH.TD24 TD SCH (05:01)
[2018-02-08 05:17] LABS: BUN/Creatinine Ratio 37 (6-26); Blood Urea Nitrogen 20 mg/dL (6-20); Calcium 8.8 mg/dL (8.6-10.3); Carbon Dioxide 26 mEq/L (23-29); Chloride 103 mEq/L (98-107); Glucose 229 mg/dL (70-105); Magnesium 2.3 mg/dL (1.6-2.6); Osmolality,Calculated 292 (280-300); Potassium 4.1 mEq/L (3.5-5.1); Sodium 136 mEq/L (136-145); eGFR For African Americans > 60 (> 60); eGFR For Non-African Americans > 60 (> 60)
[2018-02-08] MEDS: Budesonide/Formoterol 160/4.5 MDI IH SCH ×2 (07:51→20:49)
--- NOTE | 2018-02-08 09:14 | Pulmonology Progress Note ---
Date of Encounter: 02/08/18 Time of Encounter: 09:13 Assessment and Plan (1) Asthma with exacerbation Current Visit: Yes Status: Acute Continue daily peak flow she is currently less than 300 This is secondary to viral pneumonia Continue metered-dose inhaler Cont Scheduled BD's Continue montelukast asked Continue IV steroids can likely transition tomorrow to oral prednisone Follow-up pulmonary clinic Qualifiers: Asthma severity: unspecified severity Asthma persistence: persistent Qualified Code(s): J45.901 - Unspecified asthma with (acute) exacerbation (2) Pneumonia Current Visit: Yes Status: Acute This is a viral pneumonia no clear evidence of bacterial coinfection Recommend complete 5 days of azithromycin Qualifiers: Pneumonia type: due to unspecified organism Laterality: bilateral Lung location: unspecified part of lung Qualified Code(s): J18.9 - Pneumonia, unspecified organism (3) Morbid obesity with BMI of 45.0-49.9, adult Current Visit: Yes Status: Chronic Weight loss encouraged (4) Tobacco dependence Current Visit: Yes Status: Chronic Tobacco cessation counseling given (5) Sleep disorder breathing Current Visit: Yes Status: Acute Will need outpatient polysomnogram (6) Allergic rhinitis Current Visit: Yes Status: Acute Continue intranasal corticosteroid continue antihistamine Qualifiers: Allergic rhinitis seasonality: unspecified seasonality Qualified Code(s): J30.9 - Allergic rhinitis, unspecified (7) Acute respiratory failure with hypoxia Current Visit: Yes Status: Acute Wean FiO2 to keep saturation greater than 88% Subjective Principal diagnosis: Asthma Exacerbation Interval history: Slightly better today has complained of some pleuritic chest pain otherwise no change from prior day Objective PUL Vital signs: Last Vital Signs Temp 97.7 F 02/08/18 07:44 Pulse 56 02/08/18 07:44 Resp 18 02/08/18 07:51 BP 137/76 02/08/18 07:44 Pulse Ox 94 02/08/18 07:51 General appearance: no acute distress Effort: mildly labored Cardiovascular: regular rate and rhythm Integumentary: normal Extremities: no cyanosis normal mental status Results - Laboratory Findings CBC and BMP: 02/08/18 04:26 02/08/18 04:26 Abnormal lab findings: Abnormal lab results WBC 21.3 K/mcL (4.3-11.1) H 02/08/18 04:26 MCH 27.9 pg (28.0-33.3) L 02/08/18 04:26 Immature Gran % 4.6 % (0-4) H 02/08/18 04:26 Neutrophils # 16.5 K/mcL (1.6-8.9) H 02/08/18 04:26 Creatinine 0.54 mg/dL (0.60-1.20) L 02/08/18 04:26 BUN/Creatinine Ratio 37 (6-26) H 02/08/18 04:26 Glucose 229 mg/dL (70-105) H 02/08/18 04:26 POC Glucose 255 mg/dL (58-89) H 02/07/18 17:08 Hemoglobin A1c 5.9 % (-5.6) H 02/06/18 06:17 Entero/Rhino (PCR) DETECTED (Not Detect) A 02/07/18 12:11 - Microbiology Findings Microbiology Findings: Microbiology, Last 48 Hours 02/07/18 20:40 Sputum Culture - Preliminary Sputum - Clinical Findings Intake & Output: Intake & Output 02/07/18 02/08/18 02/08/18 23:59 07:59 15:59 Intake Total 1000 / 1000 Balance 1000 / 1000 Weight 125.645 kg Consult Discharge Plan - Plan Referrals: Dilia Singh [Primary Care Provider] -
[2018-02-08] MEDS ORDERED: Insulin LISPRO 300 UNITS/3 ML VIAL SQ SCH (09:18)
--- NOTE | 2018-02-08 09:21 | Internal Med Progress Note ---
Date of Encounter: 02/08/18 Time of Encounter: 09:05 - Assessment and plan (1) Asthma exacerbation Current Visit: Yes Status: Acute Assessment and plan: Pulmonary evaluation appreciated continue Symbicort, Fluticasone, and Singulair pt will need O2 qualification testing prior to discharge continue systemic steroids (Methylprednisolone 60mg IV q8h) continue bronchodilator support IV abx O2 supplementation as needed Guaifenesin prn cough will closely monitor respiratory status CTA chest noted Qualifiers: Asthma severity: moderate Asthma persistence: persistent Qualified Code(s ): J45.41 - Moderate persistent asthma with (acute) exacerbation (2) Pneumonia Current Visit: Yes Status: Acute Assessment and plan: continue IV abx Blood cultures prelim: NGTD respiratory viral panel positive for entero/rsv Qualifiers: Pneumonia type: due to unspecified organism Laterality: bilateral Lung location: unspecified part of lung Qualified Code(s): J18.9 - Pneumonia, unspecified organism (3) Tobacco dependence Current Visit: Yes Status: Chronic Assessment and plan: smoking cessation counseling provided patient not ready to quit at this time nicotine supplementation provided (4) Morbid obesity with BMI of 45.0-49.9, adult Current Visit: Yes Status: Chronic (5) Hyperglycemia Current Visit: Yes Status: Acute Assessment and plan: HbA1C: 5.9 continue high dose sliding scale insulin algorithm insulin dosing adjusted as per 24 hour insulin requirements (Levemir 17units sq daily, Humalog 5units SQ TIDAC) dietary compliance and education provided gentle IV fluids will closely monitor FS and BG ADA diet - Time Spent With Patient Total time spent is greater than 50% in coordination of care (as documented) at patient's floor/unit and/or counseling patient: - Subjective Interval history: Pt seen and examined at bedside. Resting in bed and reports of minimal improvement from previous day. Noted to have decrease in O2 demand. No overnight issues reported - Constitutional Vitals: Temp Pulse Resp BP Pulse Ox 97.7 F 56 18 137/76 94 02/08/18 07:44 02/08/18 07:44 02/08/18 07:51 02/08/18 07:44 02/08/18 07:51 General appearance: Present: A&O X 3, morbidly obese, no acute distress - Head Head exam: Present: atraumatic, normocephalic - Eye Eye exam: Present: conjuntiva pink, sclera anicteric - Respiratory Respiratory exam: Absent: respiratory distress, wheezes (decreased breath sounds ) - Cardiovascular Cardiovascular exam: Present: RRR, +S1, +S2. Absent: diastolic murmur, gallop, rubs, systolic murmur - GI/Abdominal GI/Abdominal exam: Present: normal bowel sounds, soft, no peritoneal signs. Absent: distended, tenderness - Extremities Exam Extremities exam: Present: warm, radial pulses palpable and symmetrical. Absent : calf tenderness, tenderness - Neurological Exam Neurological exam: Present: oriented X3, no focal deficits - Psychiatric Psychiatric exam: Present: normal affect, normal mood Internal Medicine: Result - Labs CBC & Chem 7: 02/08/18 04:26 02/08/18 04:26 Labs: Short CBC 02/08/18 Range/Units 04:26 WBC 21.3 H (4.3-11.1) K/mcL Hgb 12.1 (11.5-15.4) g/dL Hct 36.6 (35.3-44.9) % Plt Count 289 (140-400) K/mcL Neutrophils # 16.5 H (1.6-8.9) K/mcL BMP 02/07/18 02/08/18 12:57 04:26 Sodium 134 L 136 Potassium 4.0 4.1 Chloride 103 103 Carbon Dioxide 25 26 BUN 20 20 Creatinine 0.66 0.54 L Glucose 403 H 229 H Calcium 9.3 8.8 - Impressions Impressions Chest CTA 02/07/18 09:38 IMPRESSION: 1. No evidence of pulmonary embolus. 2. Bilateral peribronchovascular ground-glass opacities suggestive of pneumonia. D/ / 02/07/2018 10:49:50 Jerome Leger MD / michelle Interpreting Provider: Jerome Leger MD Consult Discharge Plan - Plan Referrals: Dilia Singh [Primary Care Provider] -
[2018-02-08] MEDS: Fluticasone Propionate Nasal 50 MCG/SPRAY BOTTLE NS SCH (10:53)
[2018-02-08] MEDS: Gabapentin 300 MG CAPSULE PO SCH ×3 (10:54→21:19)
[2018-02-08] MEDS: ALPRAZolam 1 MG TABLET PO SCH ×2 (10:55→21:19)
[2018-02-08] MEDS: Venlafaxine XR (24 HR) 75 MG CAP.ER.24H PO SCH (10:56)
[2018-02-08] MEDS: Insulin DETEMIR 100 UNIT/ML X5UNITS SQ SCH (10:57)
[2018-02-08] MEDS: cefTRIAXone 1,000 MG in Water for inj. (sterile) 20 ML 10 ML IVP SCH (11:00)
[2018-02-08] MEDS ORDERED: Azithromycin 500 MG VIAL IVPB ONE (11:18)
[2018-02-08] MEDS: Insulin LISPRO 300 UNITS/3 ML VIAL SQ SCH ×6 (11:21→21:16)
[2018-02-08] MEDS: GuaiFENesin Liq 200 MG/10 ML UDC PO PRN ×2 (11:22→21:30)
[2018-02-08] MEDS: Azithromycin 500 MG in D5% in Water 250 ML IVPB SCH (11:31)
[2018-02-09] MEDS: Ipratropium/Albuterol Neb 3 ML IH SCH ×6 (03:51→23:16)
[2018-02-09 05:20] LABS: Basophils # 0.1 K/mcL (0.0-0.2); Basophils % 0.4 %; Hematocrit 36.2 % (35.3-44.9); Hemoglobin 11.9 g/dL (11.5-15.4); Immature Granulocytes % 5.1 % (0-4); Lymphocytes # 2.6 K/mcL (0.6-4.6); Lymphocytes % 11.4 %; Mean Corpuscular HGB Conc 32.9 g/dL (31.6-35.5); Mean Corpuscular Hemoglobin 27.5 pg (28.0-33.3); Mean Corpuscular Volume 83.8 fL (83.0-100.0); Mean Platelet Volume 9.5 fL (9.4-12.4); Monocytes # 0.8 K/mcL (0.0-1.3); Monocytes % 3.5 %; Neutrophils # 18.2 K/mcL (1.6-8.9); Platelet Count 257 K/mcL (140-400); Red Blood Count 4.32 M/mcL (3.82-4.97); Red Cell Distribution Width 14.3 % (11.5-14.5); Segmented Neutrophils % 79.6 %
[2018-02-09 05:27] LABS: BUN/Creatinine Ratio 39 (6-26); Blood Urea Nitrogen 23 mg/dL (6-20); Calcium 8.6 mg/dL (8.6-10.3); Carbon Dioxide 26 mEq/L (23-29); Chloride 103 mEq/L (98-107); Glucose 226 mg/dL (70-105); Magnesium 2.2 mg/dL (1.6-2.6); Osmolality,Calculated 293 (280-300); Phosphorous 3.6 mg/dL (2.7-4.5); Potassium 4.1 mEq/L (3.5-5.1); Sodium 136 mEq/L (136-145); eGFR For African Americans > 60 (> 60); eGFR For Non-African Americans > 60 (> 60)
[2018-02-09] MEDS: methylPREDNISolone 125 MG/2 ML VIAL IVP SCH (05:33)
[2018-02-09] MEDS: *HR* Heparin 5,000 UNIT/ML VIAL SQ SCH ×3 (05:33→20:46)
[2018-02-09 06:19] LABS: Platelet Estimate Normal (Normal)
[2018-02-09] MEDS: Budesonide/Formoterol 160/4.5 MDI IH SCH ×2 (08:16→20:34)
[2018-02-09] MEDS: cefTRIAXone 1,000 MG in Water for inj. (sterile) 20 ML 10 ML IVP SCH (08:36)
[2018-02-09] MEDS: Nicotine 21 MG PATCH.TD24 TD SCH (08:37)
[2018-02-09] MEDS: Venlafaxine XR (24 HR) 75 MG CAP.ER.24H PO SCH (08:38)
[2018-02-09] MEDS: ALPRAZolam 1 MG TABLET PO SCH ×2 (08:38→20:46)
[2018-02-09] MEDS: Fluticasone Propionate Nasal 50 MCG/SPRAY BOTTLE NS SCH (08:39)
[2018-02-09] MEDS: Gabapentin 300 MG CAPSULE PO SCH ×3 (08:39→20:46)
[2018-02-09] MEDS: Insulin LISPRO 300 UNITS/3 ML VIAL SQ SCH ×7 (08:40→20:45)
[2018-02-09] MEDS: GuaiFENesin Liq 200 MG/10 ML UDC PO PRN ×2 (08:50→21:01)
[2018-02-09] MEDS ORDERED: Ibuprofen 400 MG TABLET PO ONE (08:56)
--- NOTE | 2018-02-09 09:20 | Internal Med Progress Note ---
Date of Encounter: 02/09/18 Time of Encounter: 08:55 - Assessment and plan (1) Asthma exacerbation Current Visit: Yes Status: Acute Assessment and plan: Pulmonary evaluation appreciated continue Symbicort, Fluticasone, and Singulair pt will need O2 qualification testing prior to discharge continue systemic steroids (Decreased Methylprednisolone to 60mg IV q12h, will switch to PO prednisone in am, pt will need a long steroid taper on discharge) continue bronchodilator support IV abx (Day 6/) O2 supplementation as needed Guaifenesin prn cough will closely monitor respiratory status CTA chest noted Ibuprofen prn pain Qualifiers: Asthma severity: moderate Asthma persistence: persistent Qualified Code(s ): J45.41 - Moderate persistent asthma with (acute) exacerbation (2) Pneumonia Current Visit: Yes Status: Acute Assessment and plan: continue IV abx Blood cultures prelim: NGTD sputum culture prelim: NGTD respiratory viral panel positive for entero/rsv Qualifiers: Pneumonia type: due to unspecified organism Laterality: bilateral Lung location: unspecified part of lung Qualified Code(s): J18.9 - Pneumonia, unspecified organism (3) Tobacco dependence Current Visit: Yes Status: Chronic Assessment and plan: smoking cessation counseling provided patient not ready to quit at this time nicotine supplementation provided (4) Morbid obesity with BMI of 45.0-49.9, adult Current Visit: Yes Status: Chronic (5) Hyperglycemia Current Visit: Yes Status: Acute Assessment and plan: HbA1C: 5.9 continue high dose sliding scale insulin algorithm insulin dosing adjusted as per 24 hour insulin requirements dietary compliance and education provided, pt continues to remain noncompliant with diet will closely monitor FS and BG ADA diet - Time Spent With Patient Total time spent is greater than 50% in coordination of care (as documented) at patient's floor/unit and/or counseling patient: - Subjective Interval history: Pt seen and examined with family present at bedside. Pt was eating breakfast during my evaluation and did not appear to be in any distress. Saturating well on nasal cannula, reports of minimal improvement in her respiratory status. States she has rib pain from the cough and is requesting ibuprofen for pain. No overnight issues reported. - Constitutional Vitals: Temp Pulse Resp BP Pulse Ox 97.4 F L 85 18 139/68 92 02/09/18 08:04 02/09/18 08:04 02/09/18 08:19 02/09/18 08:04 02/09/18 08:19 General appearance: Present: A&O X 3, morbidly obese, no acute distress - Head Head exam: Present: atraumatic, normocephalic - Eye Eye exam: Present: conjuntiva pink, sclera anicteric - Respiratory Respiratory exam: Absent: respiratory distress, wheezes (decreased breath sounds but equal air entry bilaterally ) - Cardiovascular Cardiovascular exam: Present: RRR, +S1, +S2. Absent: diastolic murmur, gallop, rubs, systolic murmur - GI/Abdominal GI/Abdominal exam: Present: normal bowel sounds, soft, no peritoneal signs. Absent: distended, tenderness - Extremities Exam Extremities exam: Present: warm, radial pulses palpable and symmetrical. Absent : calf tenderness, pedal edema - Neurological Exam Neurological exam: Present: oriented X3 Internal Medicine: Result - Labs CBC & Chem 7: 02/09/18 04:50 02/09/18 04:50 Labs: Short CBC 02/09/18 Range/Units 04:50 WBC 22.8 H (4.3-11.1) K/mcL Hgb 11.9 (11.5-15.4) g/dL Hct 36.2 (35.3-44.9) % Plt Count 257 (140-400) K/mcL Neutrophils # 18.2 H (1.6-8.9) K/mcL BMP 02/09/18 04:50 Sodium 136 Potassium 4.1 Chloride 103 Carbon Dioxide 26 BUN 23 H Creatinine 0.59 L Glucose 226 H Calcium 8.6 - Impressions Impressions Chest CTA 02/07/18 09:38 IMPRESSION: 1. No evidence of pulmonary embolus. 2. Bilateral peribronchovascular ground-glass opacities suggestive of pneumonia. D/ / 02/07/2018 10:49:50 Jerome Leger MD / michelle Interpreting Provider: Jerome Leger MD Consult Discharge Plan - Plan Referrals: Dilia Singh [Primary Care Provider] -
[2018-02-09] MEDS: Insulin DETEMIR 100 UNIT/ML X5UNITS SQ SCH (10:07)
[2018-02-09] MEDS: Azithromycin 500 MG in D5% in Water 250 ML IVPB SCH (12:13)
[2018-02-09] MEDS ORDERED: methylPREDNISolone 125 MG/2 ML VIAL IVP SCH (18:00)
[2018-02-09] MEDS ORDERED: Ketorolac 15 MG/ML VIAL IVP ONE (20:57)
[2018-02-10] MEDS: Ipratropium/Albuterol Neb 3 ML IH SCH ×3 (03:42→11:40)
[2018-02-10] MEDS: *HR* Heparin 5,000 UNIT/ML VIAL SQ SCH (05:19)
[2018-02-10 06:16] LABS: Basophils # 0.2 K/mcL (0.0-0.2); Basophils % 0.6 %; Hematocrit 39.1 % (35.3-44.9); Hemoglobin 13.3 g/dL (11.5-15.4); Immature Granulocytes % 6.7 % (0-4); Lymphocytes # 3.1 K/mcL (0.6-4.6); Lymphocytes % 10.8 %; Mean Corpuscular Hemoglobin 28.6 pg (28.0-33.3); Mean Corpuscular Volume 84.1 fL (83.0-100.0); Mean Platelet Volume 9.5 fL (9.4-12.4); Monocytes # 1.1 K/mcL (0.0-1.3); Monocytes % 3.8 %; Neutrophils # 22.5 K/mcL (1.6-8.9); Nucleated Red Blood Cells 0.2 /100 WBC (0); Platelet Count 307 K/mcL (140-400); Red Blood Count 4.65 M/mcL (3.82-4.97); Red Cell Distribution Width 14.4 % (11.5-14.5); Segmented Neutrophils % 78.1 %
[2018-02-10 06:36] LABS: BUN/Creatinine Ratio 42 (6-26); Blood Urea Nitrogen 25 mg/dL (6-20); Calcium 9.1 mg/dL (8.6-10.3); Carbon Dioxide 25 mEq/L (23-29); Chloride 101 mEq/L (98-107); Glucose 234 mg/dL (70-105); Magnesium 2.1 mg/dL (1.6-2.6); Osmolality,Calculated 298 (280-300); Phosphorous 3.8 mg/dL (2.7-4.5); Potassium 4.2 mEq/L (3.5-5.1); Sodium 138 mEq/L (136-145); eGFR For African Americans > 60 (> 60); eGFR For Non-African Americans > 60 (> 60)
[2018-02-10 06:42] LABS: Platelet Estimate Normal (Normal)
[2018-02-10] MEDS: Budesonide/Formoterol 160/4.5 MDI IH SCH (07:37)
--- NOTE | 2018-02-10 08:20 | Pulmonology Progress Note ---
Date of Encounter: 02/10/18 Time of Encounter: 08:20 Assessment and Plan (1) Asthma with exacerbation Current Visit: Yes Status: Acute Continue daily peak flow she is currently less than 300 This is secondary to viral pneumonia Continue metered-dose inhaler Cont Scheduled BD's Continue montelukast asked Continue prednisone with plan for two-week taper Okay for discharge once peak flow greater than 250 Evaluation for home-going oxygen prior to discharge Follow-up pulmonary clinic Qualifiers: Asthma severity: unspecified severity Asthma persistence: persistent Qualified Code(s): J45.901 - Unspecified asthma with (acute) exacerbation (2) Pneumonia Current Visit: Yes Status: Acute This is a viral pneumonia no clear evidence of bacterial coinfection Recommend complete 5 days of azithromycin Qualifiers: Pneumonia type: due to unspecified organism Laterality: bilateral Lung location: unspecified part of lung Qualified Code(s): J18.9 - Pneumonia, unspecified organism (3) Morbid obesity with BMI of 45.0-49.9, adult Current Visit: Yes Status: Chronic Weight loss encouraged (4) Tobacco dependence Current Visit: Yes Status: Chronic Tobacco cessation counseling given (5) Sleep disorder breathing Current Visit: Yes Status: Acute Will need outpatient polysomnogram (6) Allergic rhinitis Current Visit: Yes Status: Acute Continue intranasal corticosteroid continue antihistamine Qualifiers: Allergic rhinitis seasonality: unspecified seasonality Qualified Code(s): J30.9 - Allergic rhinitis, unspecified (7) Acute respiratory failure with hypoxia Current Visit: Yes Status: Acute Wean FiO2 to keep saturation greater than 88% Pulmonary we will sign off please call with any questions we appreciate this consultation Subjective Principal diagnosis: Asthma Exacerbation Interval history: Slightly better today still c/o left chest muscle tenderness Objective PUL Vital signs: Last Vital Signs Temp 97.7 F 02/10/18 07:48 Pulse 60 02/10/18 07:48 Resp 16 02/10/18 07:48 BP 101/65 02/10/18 07:48 Pulse Ox 98 02/10/18 07:48 General appearance: no acute distress Effort: normal Auscultation: bilateral: wheezes (insp wheeze b/l overall improved air flow) Cardiovascular: regular rate and rhythm Extremities: no edema mood appropriate Results - Laboratory Findings CBC and BMP: 02/10/18 05:43 02/10/18 05:43 Abnormal lab findings: Abnormal lab results WBC 28.8 K/mcL (4.3-11.1) H 02/10/18 05:43 Immature Gran % 6.7 % (0-4) H 02/10/18 05:43 Neutrophils # 22.5 K/mcL (1.6-8.9) H 02/10/18 05:43 Nucleated RBCs/100 WBC 0.2 /100 WBC (0) H 02/10/18 05:43 BUN 25 mg/dL (6-20) H 02/10/18 05:43 Creatinine 0.59 mg/dL (0.60-1.20) L 02/10/18 05:43 BUN/Creatinine Ratio 42 (6-26) H 02/10/18 05:43 Glucose 234 mg/dL (70-105) H 02/10/18 05:43 POC Glucose 209 mg/dL (70-99) H 02/09/18 20:26 Hemoglobin A1c 5.9 % (-5.6) H 02/06/18 06:17 IgE 987 kU/L (<=214) H 02/07/18 12:06 Entero/Rhino (PCR) DETECTED (Not Detect) A 02/07/18 12:11 - Microbiology Findings Microbiology Findings: Microbiology, Last 48 Hours 02/07/18 20:40 Sputum Culture - Final Sputum - Clinical Findings Intake & Output: Intake & Output 02/09/18 02/10/18 02/10/18 23:59 07:59 15:59 Weight 127.5 kg Consult Discharge Plan - Plan Referrals: Dilia Singh [Primary Care Provider] -
[2018-02-10] MEDS ORDERED: predniSONE 20 MG TABLET PO SCH ×2 (09:00)
[2018-02-10] MEDS: Nicotine 21 MG PATCH.TD24 TD SCH (09:24)
[2018-02-10] MEDS: Gabapentin 300 MG CAPSULE PO SCH (09:25)
[2018-02-10] MEDS: cefTRIAXone 1,000 MG in Water for inj. (sterile) 20 ML 10 ML IVP SCH (09:25)
[2018-02-10] MEDS: Venlafaxine XR (24 HR) 75 MG CAP.ER.24H PO SCH (09:25)
[2018-02-10] MEDS: ALPRAZolam 1 MG TABLET PO SCH (09:25)
[2018-02-10] MEDS: Insulin DETEMIR 100 UNIT/ML X5UNITS SQ SCH (09:26)
[2018-02-10] MEDS: Insulin LISPRO 300 UNITS/3 ML VIAL SQ SCH ×2 (09:27)
[2018-02-10] MEDS: Fluticasone Propionate Nasal 50 MCG/SPRAY BOTTLE NS SCH (09:27)
[2018-02-10] MEDS ORDERED: Nystatin SUSP 5 ML UD.LIQ PO ONE (09:53)
[2018-02-10] MEDS: Azithromycin 500 MG in D5% in Water 250 ML IVPB SCH (11:05)
[2018-02-10 12:13] VITALS: BP 129/77
--- NOTE | 2018-02-10 12:24 | Discharge Summary ---
- NOTES TO OUTPATIENT PROVIDER Notes to Outpatient Provider: Pt started on long steroid taper on 02/10/18. Date of Encounter: 02/10/18 Time of Encounter: 09:10 - Discharge Diagnosis (1) Asthma exacerbation Priority: Primary Status: Acute Qualifiers: Asthma severity: moderate Asthma persistence: persistent Qualified Code(s ): J45.41 - Moderate persistent asthma with (acute) exacerbation (2) Pneumonia Priority: Primary Status: Acute Qualifiers: Pneumonia type: due to unspecified organism Laterality: bilateral Lung location: unspecified part of lung Qualified Code(s): J18.9 - Pneumonia, unspecified organism (3) Tobacco dependence Priority: Secondary Status: Chronic (4) Morbid obesity with BMI of 45.0-49.9, adult Priority: Secondary Status: Chronic (5) Hyperglycemia Priority: Secondary Status: Acute Hospital course: Ms. Mendez is a 27 year old female with PMH of asthma, tobacco abuse, morbid obesity who is admitted for acute respiratory distress secondary to PNA/Enter/ rhino virus pna. pt was started on O2 supplementation, IV steroids, abx support. Pt was followed by pulmonary and ICS were added to the regimen. Pt was slowly able to be tolerated off the oxygen support. She did not qualify for home oxygen support when evaluated with six minute walk test. Her respiratory status improved and currently she is saturating well on room air. She is medically stable for discharge to home with follow up with pcp and pulmonary. Pt and family demonstrate understanding of her diagnosis and agree with the discharge care and plan. Discharge discussed with: patient, family, nurse - Time Spent with Patient Total time spent providing and/or coordinating discharge services: Less than 30 minutes - Discharge Medications Prescriptions: Budesonide/Formoterol 160/4.5 [Symbicort 160/4.5] 2 puff IH BIDR #1 inhaler Fluticasone Propionate Nasal [Flonase] 50 mcg NS DAILY #1 bottle Montelukast [Singulair] 10 mg PO HS #30 tablet Home Medications: Albuterol Sulfate [Ventolin Hfa] 2 puff IH Q4H PRN 02/04/18 [History] Alprazolam [Xanax] 2 mg PO BID 02/04/18 [History] Clindamycin Phosphate [Cleocin T] 1 appl TP BID PRN 02/04/18 [History] Gabapentin [Neurontin] 600 mg PO TID 02/04/18 [History] GuaiFENesin ER [Mucinex] 600 mg PO BID #10 tbbp.12hr 02/04/18 [Rx] Omeprazole [PriLOSEC] 20 mg PO BID 02/04/18 [History] Paliperidone [Paliperidone ER] 3 mg PO DAILY 02/04/18 [History] Paliperidone [Paliperidone ER] 9 mg PO HS 02/04/18 [History] Venlafaxine HCl [Venlafaxine HCl ER] 75 mg PO DAILY 02/04/18 [History] Zolpidem Tartrate 5 mg PO HS PRN 02/04/18 [History] predniSONE [Prednisone] 50 mg PO DAILY #5 tablet 02/04/18 [Rx] Budesonide/Formoterol 160/4.5 [Symbicort 160/4.5] 2 puff IH BIDR #1 inhaler 04/24 [Rx] Fluticasone Propionate Nasal [Flonase] 50 mcg NS DAILY #1 bottle 02/10/18 [Rx] Montelukast [Singulair] 10 mg PO HS #30 tablet 02/10/18 [Rx] Allergies/Adverse Reactions: 3 Allergy/AdvReac Type Severity Reaction Status Date / Time doxycycline AdvReac Hives Verified 10/20/17 16:12 Date of admission: 02/06/18 15:59 Primary care physician: Dilia Singh Consults: 02/07/18 10:48 Consult to Pulmonology [CONS] Routine Consulting Provider: [facility] [place] Reason for Consult: asthma exacerbation, PNA Call Completed: Yes 02/07/18 11:56 Consult to Respiratory Therapy [CONS] Routine Reason for Consult: measure daily peak flow Call Completed: Yes Discharging clinician: Juani Vasquez Anticipated date of discharge: 02/10/18 - Constitutional Vitals: Temp Pulse Resp BP Pulse Ox 97.8 F 73 17 129/77 94 02/10/18 12:12 02/10/18 12:12 02/10/18 12:12 02/10/18 12:12 02/10/18 12:12 General appearance: Present: A&O X 3, morbidly obese, no acute distress - Head Head exam: Present: atraumatic, normocephalic - Eye Eye exam: Present: conjuntiva pink, sclera anicteric - Respiratory Respiratory exam: Absent: rales, respiratory distress, wheezes - Cardiovascular Cardiovascular exam: Present: RRR, +S1, +S2. Absent: diastolic murmur, gallop, rubs, systolic murmur - GI/Abdominal GI/Abdominal exam: Present: normal bowel sounds, soft, no peritoneal signs. Absent: distended, tenderness - Extremities Exam Extremities exam: Present: warm, radial pulses palpable and symmetrical. Absent : calf tenderness - Neurological Exam Neurological exam: Present: oriented X3 - Patient Status Disposition: Home, Self-Care Condition: Good Functional capacity at discharge: independent ambulation Overall status at discharge: patient is back to baseline - Discharge Instructions Instructions: Diabetes Mellitus Type 1 in Adults (DC), Diabetes Mellitus Type 1 in Adults (GEN), Diabetic Hypoglycemia (DC), Diabetic Hypoglycemia (GEN), Basic Carbohydrate Counting (DC), Basic Carbohydrate Counting (GEN), Meal Planning with the Plate Model (DC), Meal Planning with the Plate Model (GEN), Meal Planning with Diabetes Exchanges (DC), Meal Planning with Diabetes Exchanges (GEN), Diabetic Hyperglycemia (DC), Diabetic Hyperglycemia (GEN), Cold Symptoms, Fish Cleaner (GEN), Diabetes Mellitus Type 1 in Adults, Fish Cleaner (GEN), Diabetes Mellitus Type 2 in Adults, Fish Cleaner (GEN) , Diabetic Hyperglycemia, Fish Cleaner (GEN) Follow Up With: Dilia Singh [Primary Care Provider] - Vishal Reyes MD [Partnered Physician] - (follow up in 2 weeks.) Additional Instructions: Please follow up with your primary care physician within five days after your discharge from the hospital. Please follow up with your equity holder within one to two weeks after your discharge from the hospital. Please continue the long steroid taper as prescribed. You have finished your antibiotics course during this hospitalization Your HbA1C was 5.9 which puts you in the prediabetic range and puts you at risk of developing diabetes. Lifestyle modifications such as weight loss, diabetic diet are advised. Resume all other home medications as prescribed by your primary care physician. - Diet and Activity Activity: resume usual activities as tolerated Diet: low fat, low cholesterol, low salt diet
== END 2018-02-10 14:36 | disposition home or self-care (01) | DRG 139 ==
LOC: EMEROO 09:03 → 3BNU 09:03 → SUATTDRO 12:16 → 3BNU 12:56
PROVIDERS: ADMIT Hospitalist; ATTEND Internal Medicine

== ENCOUNTER → 2019-05-30 01:45 | Observation (INO) ==
--- NOTE | 2019-05-30 01:43 | OB/GYN Progress Note ---
Date of Encounter: 05/30/19 Time of Encounter: 01:41 - Assessment and Plan (1) 34 weeks gestation of Current Visit: Yes Status: Acute (2) Encounter for suspected PROM, with rupture of membranes not found Current Visit: Yes Status: Acute Speculum exam shows vaginal vault with no pooling and almost no discharge. Ferning negative. Discharged home with labor and when to return to triage precautions. Subjective - Subjective Interval history: 34+2 weeks gestation presents to triage with complaints of leaking of fluid. Patient states she is having intercourse earlier this evening and had 2 gushes of fluid, and continued to have leaking on the way here. No further leaking while here. Reorts good movement, denies vaginal bleeding. Antepartum ROS: loss of fluid, movement normal, no vaginal bleeding, no contractions Objective - Exam FHR: auscultation normal FHR comments: Baseline 135 Abdomen: Present: soft, gravid Cervical dilation: Closed/thick/high
[2019-05-30 03:37] LABS: Amphetamine Screen,Urine Negative ng/mL (Cutoff=1000); Barbiturate Screen,Urine Negative ng/mL (Cutoff=200); Benzodiazepines Screen,Urine Negative ng/mL (Cutoff=200); Cannabinoid Screen,Urine Negative ng/mL (Cutoff = 50); Cocaine Screen,Urine Negative ng/mL (Cutoff= 300); Opiate Screen,Urine Negative ng/mL (Cutoff=300); Phencyclidine Screen,Urine Negative ng/mL (Cutoff=25)
== END | disposition home or self-care (01) ==
LOC: 1NENULAB
PROVIDERS: ADMIT Advanced Practice Midwife; ATTEND Advanced Practice Midwife

== ENCOUNTER 2019-06-29 17:02 | Inpatient (IN) ==
[2019-06-29] MEDS ORDERED: Famotidine 20 MG/2 ML VIAL IVP ONE (17:35)
[2019-06-29] MEDS ORDERED: CeFAZolin Syr 3,000MG/30 ML 3,000 MG/30 ML SYRINGE IVPB ONE (17:35)
[2019-06-29] MEDS ORDERED: Metoclopramide 10 MG/2 ML VIAL IVP ONE (17:35)
[2019-06-29] MEDS ORDERED: Oxytocin 20 units/ LR 1000 mL 20 UNIT/1,000 ML BAG IVC ONE (17:35)
[2019-06-29] MEDS ORDERED: Azithromycin 500 MG in 0.9 % Sodium Chloride 250 ML IVPB ONE (17:38)
[2019-06-29] MEDS ORDERED: 0.9 % Sodium Chloride 1,000 ML IVC SCH (17:45)
[2019-06-29 18:10] LABS: Basophils # 0.1 K/mcL (0.0-0.2); Basophils % 0.3 %; Eosinophils # 0.2 K/mcL (0.0-0.6); Eosinophils % 0.9 %; Hematocrit 38.1 % (35.3-44.9); Hemoglobin 12.5 g/dL (11.5-15.4); Immature Granulocytes % 0.9 % (0-4); Lymphocytes # 3.7 K/mcL (0.6-4.6); Lymphocytes % 19.7 %; Mean Corpuscular HGB Conc 32.8 g/dL (31.6-35.5); Mean Corpuscular Hemoglobin 26.3 pg (28.0-33.3); Mean Platelet Volume 10.7 fL (9.4-12.4); Monocytes # 0.8 K/mcL (0.0-1.3); Monocytes % 4.3 %; Neutrophils # 13.7 K/mcL (1.6-8.9); Nucleated Red Blood Cells 0.2 /100 WBC (0); Platelet Count 413 K/mcL (140-400); Red Blood Count 4.76 M/mcL (3.82-4.97); Segmented Neutrophils % 73.9 %; White Blood Count 18.5 K/mcL (4.3-11.1)
[2019-06-29 18:18] LABS: Amphetamine Screen,Urine Negative ng/mL (Cutoff=1000); Barbiturate Screen,Urine Negative ng/mL (Cutoff=200); Benzodiazepines Screen,Urine Negative ng/mL (Cutoff=200); Cannabinoid Screen,Urine Negative ng/mL (Cutoff = 50); Cocaine Screen,Urine Negative ng/mL (Cutoff= 300); Opiate Screen,Urine Negative ng/mL (Cutoff=300); Phencyclidine Screen,Urine Negative ng/mL (Cutoff=25)
[2019-06-29] MEDS ORDERED: Ringers Solution, Lactated 1,000 ML ONE ×2 (18:31→20:16)
[2019-06-29] MEDS ORDERED: Ringers Solution, Lactated 1,000 ML IVC SCH ×2 (18:45→23:49)
[2019-06-29] MEDS ORDERED: *HR* FentaNYL (PF) 100 MCG/2 ML VIAL ONE (19:12)
[2019-06-29] MEDS ORDERED: *HR* Oxytocin 10 UNIT/ML VIAL IM ONE (19:12)
[2019-06-29] MEDS ORDERED: *HR* Morphine Sulfate/PF 10 MG/10 ML AMPUL ONE (19:12)
[2019-06-29] MEDS ORDERED: Albuterol 2.5 MG/3 ML NEBULIZER IH ONE (19:25)
[2019-06-29] MEDS ORDERED: Albuterol 2.5 MG/3 ML NEBULIZER ONE (19:38)
[2019-06-29] MEDS ORDERED: Acetaminophen IV 1,000 MG/100 ML INFUS..BTL IVPB ONE (20:45)
[2019-06-29] MEDS ORDERED: *HR* HYDROmorphone (PF) 1 MG/ML SYRINGE IVP PRN ×2 (20:45→20:47)
[2019-06-29] MEDS ORDERED: Ondansetron 4 MG/2 ML VIAL IVP PRN ×2 (20:45→23:49)
[2019-06-29] MEDS ORDERED: *HR* Meperidine 25 MG/ML SYRINGE IVP PRN (20:45)
[2019-06-29] MEDS ORDERED: Ondansetron 4 MG/2 ML VIAL IVP ONE (20:47)
[2019-06-29] MEDS ORDERED: Ketorolac 30 MG/ML VIAL IVP ONE (20:47)
[2019-06-29] MEDS ORDERED: *HR* OxyCODONE Immed Rel 5 MG TABLET PO PRN (20:47)
[2019-06-29] MEDS ORDERED: *HR* Promethazine 25 MG/ML VIAL IVP PRN (20:47)
[2019-06-29] MEDS ORDERED: Simethicone 80 MG TAB.CHEW PO PRN (23:49)
[2019-06-29] MEDS ORDERED: Oxytocin 20 units/ LR 1000 mL 20 UNIT/1,000 ML BAG IVC SCH ×2 (23:49)
[2019-06-29] MEDS ORDERED: Metoclopramide 10 MG/2 ML VIAL IVP PRN (23:49)
[2019-06-29] MEDS ORDERED: Sennosides 8.6 MG TABLET PO PRN (23:49)
[2019-06-29] MEDS ORDERED: Measles/Mumps/Rubella Vacc 0.5 ML VIAL SQ ONE (23:49)
[2019-06-29] MEDS ORDERED: Naloxone 0.4 MG/ML INJ IVP PRN (23:49)
[2019-06-30] MEDS: Ibuprofen 600 MG TABLET PO PRN ×4 (00:25→23:50)
[2019-06-30] MEDS: *HR* OxyCODONE/APAP 5/325 TABLET PO PRN ×6 (00:25→23:50)
[2019-06-30 08:29] LABS: Hematocrit 34.9 % (35.3-44.9); Hemoglobin 11.4 g/dL (11.5-15.4); Mean Corpuscular HGB Conc 32.7 g/dL (31.6-35.5); Mean Corpuscular Hemoglobin 26.1 pg (28.0-33.3); Mean Corpuscular Volume 79.9 fL (83.0-100.0); Red Blood Count 4.37 M/mcL (3.82-4.97); White Blood Count 18.9 K/mcL (4.3-11.1)
[2019-06-30 08:30] LABS: Basophils # 0.1 K/mcL (0.0-0.2); Basophils % 0.4 %; Eosinophils # 0.1 K/mcL (0.0-0.6); Eosinophils % 0.7 %; Immature Granulocytes % 0.7 % (0-4); Lymphocytes # 4.8 K/mcL (0.6-4.6); Lymphocytes % 25.2 %; Mean Platelet Volume 10.6 fL (9.4-12.4); Monocytes # 0.7 K/mcL (0.0-1.3); Monocytes % 3.7 %; Neutrophils # 13.1 K/mcL (1.6-8.9); Platelet Count 366 K/mcL (140-400); Red Cell Distribution Width 15.7 % (11.5-14.5); Segmented Neutrophils % 69.3 %
[2019-06-30] MEDS: Loratadine 10 MG TABLET PO SCH (08:37)
[2019-06-30] MEDS: Prenatal Vit/FA 1 EACH TABLET PO SCH (08:37)
[2019-06-30] MEDS: Azithromycin 250 MG TABLET PO SCH (08:37)
[2019-06-30] MEDS: cephALEXin 500 MG CAPSULE PO SCH ×2 (08:37→19:54)
[2019-06-30] MEDS: Famotidine 20 MG TABLET PO SCH (10:33)
[2019-07-01] MEDS: *HR* OxyCODONE/APAP 5/325 TABLET PO PRN ×4 (04:00→16:07)
[2019-07-01] MEDS: Ibuprofen 600 MG TABLET PO PRN ×2 (05:59→16:07)
[2019-07-01 07:31] VITALS: BP 132/84
[2019-07-01] MEDS: Loratadine 10 MG TABLET PO SCH (07:48)
[2019-07-01] MEDS: cephALEXin 500 MG CAPSULE PO SCH (07:48)
[2019-07-01] MEDS: Prenatal Vit/FA 1 EACH TABLET PO SCH (07:48)
[2019-07-01] MEDS: Azithromycin 250 MG TABLET PO SCH (07:48)
[2019-07-01] MEDS: Famotidine 20 MG TABLET PO SCH (09:45)
== END 2019-07-01 16:28 | disposition home or self-care (01) | DRG 540 ==
LOC: 1NENULAB 17:02 → 1NENUOBS 23:17
PROVIDERS: ADMIT Obstetrics & Gynecology; ATTEND Obstetrics & Gynecology

== ENCOUNTER 2021-06-29 11:05 | Inpatient (IN) ==
[2021-06-29] MEDS ORDERED: Ipratropium/Albuterol Neb 3 ML IH ONE (13:20)
[2021-06-29 14:05] LABS: Basophils % 0.2 %; Eosinophils # 0.3 K/mcL (0.0-0.6); Eosinophils % 1.5 %; Hemoglobin 10.9 g/dL (11.5-15.4); Immature Granulocytes % 0.6 % (0-4); Lymphocytes % 11.8 %; Mean Corpuscular HGB Conc 31.1 g/dL (31.6-35.5); Mean Corpuscular Hemoglobin 22.7 pg (28.0-33.3); Mean Corpuscular Volume 72.9 fL (83.0-100.0); Mean Platelet Volume 9.3 fL (9.4-12.4); Monocytes # 0.7 K/mcL (0.0-1.3); Monocytes % 3.8 %; Neutrophils # 14.1 K/mcL (1.6-8.9); Platelet Count 314 K/mcL (140-400); Segmented Neutrophils % 82.1 %; White Blood Count 17.1 K/mcL (4.3-11.1)
[2021-06-29 14:25] LABS: BUN/Creatinine Ratio 19 (6-26); Blood Urea Nitrogen 9 mg/dL (6-20); Calcium 9.4 mg/dL (8.6-10.3); Carbon Dioxide 20 mEq/L (23-29); Chloride 105 mEq/L (98-107); Glucose 109 mg/dL (70-105); Osmolality,Calculated 281 (280-300); Potassium 3.7 mEq/L (3.5-5.1); Sodium 136 mEq/L (136-145); eGFR For African Americans > 60 (> 60); eGFR For Non-African Americans > 60 (> 60)
[2021-06-29 14:34] LABS: Troponin I < 0.03 ng/mL (< 0.04)
[2021-06-29 15:01] LABS: Adenovirus Not Detected (Not Detect); Bordetella Pertussis Not Detected (Not Detect); Chlamydophila pneumoniae Not Detected (Not Detect); Coronavirus 229E Not Detected (Not Detect); Coronavirus HKU1 Not Detected (Not Detect); Coronavirus NL63 Not Detected (Not Detect); Coronavirus OC43 Not Detected (Not Detect); Human Metapneumovirus Not Detected (Not Detect); Human Rhinovirus/Enterovirus DETECTED (Not Detect); Influenza A Subtype 2009 H1 Not Detected (Not Detect); Influenza B Not Detected (Not Detect); Mycoplasma pneumoniae Not Detected (Not Detect); Parainfluenza Virus 1 Not Detected (Not Detect); Parainfluenza Virus 2 Not Detected (Not Detect); Parainfluenza Virus 3 Not Detected (Not Detect); Parainfluenza Virus 4 Not Detected (Not Detect); Respiratory Syncytial Virus Not Detected (Not Detect); SARS-CoV-2 Not Detected (Not Detect)
[2021-06-29] MEDS ORDERED: methylPREDNISolone 125 MG/2 ML VIAL IVP ONE (15:58)
[2021-06-29] MEDS ORDERED: Ondansetron ODT 4 MG TAB.RAPDIS SL PRN (17:34)
[2021-06-29] MEDS ORDERED: 0.9 % Sodium Chloride 1,000 ML IVC ONE (17:34)
[2021-06-29] MEDS ORDERED: Acetaminophen 325 MG TABLET PO PRN (17:34)
[2021-06-29] MEDS ORDERED: Naloxone 0.4 MG/ML INJ IVP PRN (17:34)
[2021-06-29] MEDS ORDERED: Azithromycin 250 MG TABLET PO SCH (17:45)
[2021-06-29] MEDS ORDERED: Dextrose Gel 15 GM/37.5 ML TUBE PO PRN ×2 (17:46)
[2021-06-29] MEDS ORDERED: D5% in Water 1,000 ML IVC PRN (17:46)
[2021-06-29] MEDS ORDERED: *HR* Dextrose 50 % in Water (Vial) 50 ML VIAL IVP PRN (17:46)
[2021-06-29] MEDS ORDERED: Nicotine 2 MG GUM BC PRN (17:50)
[2021-06-29] MEDS ORDERED: cefTRIAXone 1,000 MG in Water for inj. (sterile) 10 ML IVP SCH (18:00)
[2021-06-29] MEDS: Insulin LISPRO 300 UNITS/3 ML VIAL SUBQ SCH (19:02)
[2021-06-29] MEDS: *HR* Heparin 5,000 UNIT/ML VIAL SQ SCH (21:26)
[2021-06-29] MEDS ORDERED: cloNIDine HCL 0.1 MG TABLET PO PRN (21:39)
[2021-06-29] MEDS: Ipratropium/Albuterol Neb 3 ML IH SCH (21:50)
[2021-06-29] MEDS ORDERED: ALPRAZolam 1 MG TABLET PO PRN (21:58)
[2021-06-29] MEDS: Gabapentin 300 MG CAPSULE PO SCH (22:34)
[2021-06-29] MEDS: ALPRAZolam 0.5 MG TABLET PO PRN (22:34)
[2021-06-29] MEDS: lamoTRIgine 25 MG TABLET PO SCH (22:34)
[2021-06-29] MEDS: Melatonin 3 MG TABLET PO PRN (22:34)
[2021-06-30] MEDS: MethylPREDNISolone 40 MG/ML VIAL IVP SCH ×3 (00:58→15:02)
[2021-06-30] MEDS: Ipratropium/Albuterol Neb 3 ML IH SCH ×4 (04:57→21:17)
[2021-06-30 05:14] LABS: Basophils % 0.2 %; Hematocrit 33.8 % (35.3-44.9); Hemoglobin 10.4 g/dL (11.5-15.4); Immature Granulocytes % 1.2 % (0-4); Lymphocytes # 1.1 K/mcL (0.6-4.6); Lymphocytes % 6.1 %; Mean Corpuscular HGB Conc 30.8 g/dL (31.6-35.5); Mean Corpuscular Hemoglobin 22.4 pg (28.0-33.3); Mean Corpuscular Volume 72.7 fL (83.0-100.0); Mean Platelet Volume 9.3 fL (9.4-12.4); Monocytes # 0.3 K/mcL (0.0-1.3); Monocytes % 1.4 %; Neutrophils # 16.7 K/mcL (1.6-8.9); Platelet Count 334 K/mcL (140-400); Red Blood Count 4.65 M/mcL (3.82-4.97); Red Cell Distribution Width 17.5 % (11.5-14.5); Segmented Neutrophils % 91.1 %; White Blood Count 18.4 K/mcL (4.3-11.1)
[2021-06-30 05:49] LABS: BUN/Creatinine Ratio 23 (6-26); Blood Urea Nitrogen 11 mg/dL (6-20); Calcium 9.4 mg/dL (8.6-10.3); Carbon Dioxide 20 mEq/L (23-29); Chloride 105 mEq/L (98-107); Glucose 203 mg/dL (70-105); Magnesium 1.7 mg/dL (1.6-2.6); Osmolality,Calculated 285 (280-300); Potassium 3.7 mEq/L (3.5-5.1); Sodium 135 mEq/L (136-145); eGFR For African Americans > 60 (> 60); eGFR For Non-African Americans > 60 (> 60)
[2021-06-30] MEDS: *HR* Heparin 5,000 UNIT/ML VIAL SQ SCH ×3 (05:51→21:44)
[2021-06-30 05:53] LABS: Iron 19 mcg/dL (50-170)
[2021-06-30 06:08] LABS: Ferritin 43 ng/mL (10-120)
[2021-06-30 06:13] LABS: Folate 7.3 ng/mL (3.0-16.0)
[2021-06-30 07:26] LABS: % Iron Saturation 4 % (15-50); Transferrin 377 mg/dL (203-362)
[2021-06-30] MEDS: Gabapentin 300 MG CAPSULE PO SCH ×3 (07:50→21:46)
[2021-06-30] MEDS: Cariprazine Hcl [Vraylar] 1.5 MG Capsule PO SCH (07:51)
[2021-06-30] MEDS: lamoTRIgine 25 MG TABLET PO SCH ×2 (07:51→21:46)
[2021-06-30] MEDS: Vilazodone Hcl [Viibryd] 40 MG Tablet PO SCH (07:51)
[2021-06-30] MEDS: Nicotine 14 MG PATCH.TD24 TD SCH (07:57)
[2021-06-30] MEDS: Insulin LISPRO 300 UNITS/3 ML VIAL SUBQ SCH ×4 (08:00→22:55)
[2021-06-30] MEDS: Budesonide/Formoterol 160/4.5 1 PUFF INH IH SCH ×2 (08:14→21:17)
[2021-06-30] MEDS: amLODIPine 5 MG TABLET PO SCH (09:05)
[2021-06-30] MEDS: Loratadine 10 MG TABLET PO SCH (09:05)
[2021-06-30] MEDS: ALPRAZolam 0.5 MG TABLET PO PRN ×2 (15:28→21:45)
[2021-07-01] MEDS: MethylPREDNISolone 40 MG/ML VIAL IVP SCH ×3 (00:34→16:36)
[2021-07-01] MEDS: Ipratropium/Albuterol Neb 3 ML IH SCH ×2 (03:45→08:28)
[2021-07-01] MEDS: *HR* Heparin 5,000 UNIT/ML VIAL SQ SCH ×3 (06:02→19:57)
[2021-07-01 06:33] LABS: Hematocrit 33.4 % (35.3-44.9); Hemoglobin 9.9 g/dL (11.5-15.4); Mean Corpuscular HGB Conc 29.6 g/dL (31.6-35.5); Mean Corpuscular Volume 74.4 fL (83.0-100.0); Mean Platelet Volume 9.8 fL (9.4-12.4); Platelet Count 372 K/mcL (140-400); Red Blood Count 4.49 M/mcL (3.82-4.97); Red Cell Distribution Width 17.7 % (11.5-14.5); White Blood Count 21.9 K/mcL (4.3-11.1)
[2021-07-01 06:53] LABS: BUN/Creatinine Ratio 25 (6-26); Blood Urea Nitrogen 15 mg/dL (6-20); Calcium 9.7 mg/dL (8.6-10.3); Carbon Dioxide 21 mEq/L (23-29); Chloride 105 mEq/L (98-107); Glucose 383 mg/dL (70-105); Osmolality,Calculated 299 (280-300); Potassium 4.2 mEq/L (3.5-5.1); Sodium 136 mEq/L (136-145); eGFR For African Americans > 60 (> 60); eGFR For Non-African Americans > 60 (> 60)
[2021-07-01] MEDS: Nicotine 14 MG PATCH.TD24 TD SCH (08:18)
[2021-07-01] MEDS: amLODIPine 5 MG TABLET PO SCH (08:18)
[2021-07-01] MEDS: Loratadine 10 MG TABLET PO SCH (08:18)
[2021-07-01] MEDS: lamoTRIgine 25 MG TABLET PO SCH ×2 (08:18→19:54)
[2021-07-01] MEDS: Gabapentin 300 MG CAPSULE PO SCH ×3 (08:18→19:54)
[2021-07-01] MEDS: Insulin LISPRO 300 UNITS/3 ML VIAL SUBQ SCH ×4 (08:19→19:54)
[2021-07-01] MEDS: Budesonide/Formoterol 160/4.5 1 PUFF INH IH SCH ×2 (08:28→19:24)
[2021-07-01] MEDS: Cariprazine Hcl [Vraylar] 1.5 MG Capsule PO SCH (08:32)
[2021-07-01] MEDS: Vilazodone Hcl [Viibryd] 40 MG Tablet PO SCH (08:32)
[2021-07-01] MEDS: Levalbuterol Neb 1.25 MG/3 ML IH SCH ×4 (11:28→23:11)
[2021-07-01] MEDS ORDERED: Insulin DETEMIR 100 UNIT/ML X5UNITS SUBQ STA (13:31)
[2021-07-01] MEDS ORDERED: Insulin LISPRO 300 UNITS/3 ML VIAL SUBQ ONE (13:33)
[2021-07-01] MEDS: ALPRAZolam 0.5 MG TABLET PO PRN ×2 (15:02→19:53)
[2021-07-01] MEDS: Melatonin 3 MG TABLET PO PRN (19:54)
[2021-07-02] MEDS: MethylPREDNISolone 40 MG/ML VIAL IVP SCH ×2 (01:04→08:17)
[2021-07-02] MEDS: Levalbuterol Neb 1.25 MG/3 ML IH SCH ×2 (04:10→07:28)
[2021-07-02] MEDS: *HR* Heparin 5,000 UNIT/ML VIAL SQ SCH (04:51)
[2021-07-02 05:14] LABS: Basophils % 0.1 %; Hematocrit 33.2 % (35.3-44.9); Hemoglobin 10.1 g/dL (11.5-15.4); Immature Granulocytes % 1.3 % (0-4); Lymphocytes % 10.3 %; Mean Corpuscular HGB Conc 30.4 g/dL (31.6-35.5); Mean Corpuscular Hemoglobin 22.4 pg (28.0-33.3); Mean Corpuscular Volume 73.6 fL (83.0-100.0); Mean Platelet Volume 9.7 fL (9.4-12.4); Monocytes # 0.5 K/mcL (0.0-1.3); Monocytes % 2.8 %; Neutrophils # 16.3 K/mcL (1.6-8.9); Platelet Count 366 K/mcL (140-400); Red Blood Count 4.51 M/mcL (3.82-4.97); Red Cell Distribution Width 17.3 % (11.5-14.5); Segmented Neutrophils % 85.5 %; White Blood Count 19.1 K/mcL (4.3-11.1)
[2021-07-02 07:19] VITALS: BP 119/71; PULSE 63; TEMP 98
[2021-07-02] MEDS: Budesonide/Formoterol 160/4.5 1 PUFF INH IH SCH (07:29)
[2021-07-02] MEDS: Insulin LISPRO 300 UNITS/3 ML VIAL SUBQ SCH (08:16)
[2021-07-02] MEDS: Gabapentin 300 MG CAPSULE PO SCH (08:17)
[2021-07-02] MEDS: Nicotine 14 MG PATCH.TD24 TD SCH (08:17)
[2021-07-02] MEDS: lamoTRIgine 25 MG TABLET PO SCH (08:18)
[2021-07-02] MEDS: amLODIPine 5 MG TABLET PO SCH (08:18)
[2021-07-02] MEDS: Loratadine 10 MG TABLET PO SCH (08:18)
[2021-07-02] MEDS: ALPRAZolam 0.5 MG TABLET PO PRN (08:25)
[2021-07-02] MEDS ORDERED: Tiotropium 10 INH DOSE IH SCH (10:00)
[2021-07-02 10:01] VITALS: O2SAT 93
[2021-07-02] MEDS: Vilazodone Hcl [Viibryd] 40 MG Tablet PO SCH (10:35)
[2021-07-02] MEDS: Cariprazine Hcl [Vraylar] 1.5 MG Capsule PO SCH (10:35)
== END 2021-07-02 11:51 | disposition home or self-care (01) | DRG 720 ==
LOC: EMEROOARM 11:05 → CDU 11:05 → SUATTDRO 16:26 → CDU 16:50 → SUATTDRO 06-30 13:55
PROVIDERS: ADMIT Internal Medicine; ATTEND Student in an Organized Health Care Education/Training Program